=== PATIENT | female | born 1940 | race Caucasian/White ===

== ENCOUNTER 2017-03-20 09:55 | Inpatient (IN) ==
[2017-03-20] MEDS ORDERED: Ipratropium/Albuterol Neb 3 ML IH ONE (10:09)
[2017-03-20] MEDS ORDERED: Furosemide 40 MG/4 ML VIAL IVP ONE (10:18)
[2017-03-20] MEDS ORDERED: Nitroglycerin 1 INCH/GM PACKET TP ONE (10:18)
--- NOTE | 2017-03-20 10:22 | Emergency Department Note ---
Disposition Clinical Impression: Congestive heart failure Disposition: Admitted As Inpatient Condition: Fair Referrals: Dev Aguilar Jr, MD [Primary Care Provider] - Forms: ED Satisfaction Letter Time of Disposition: 13:10 SOB HPI - General Chief Complaint: ED Shortness of Breath/Dyspnea Stated Complaint: JU Time Seen by Provider: 03/20/17 09:59 Source: patient, EMS Limitations: age Nursing Notes Reviewed: Yes Vital Signs Reviewed: Yes - History of Present Illness I did review the previous record and the patient presents today with shortness of breath which have been ongoing since but was worse this morning when she woke up, began gradually, constant, not worse with exertion and she does have a associated cough that she feels that she is not able to actually expectorate sputum. Does have some rhinorrhea, no sneezing. No fever. Does have chronic blurred vision but nothing new. Does have increased lower extremity edema. Has gained 11 pounds of weight since . She denies any skin rash but does have bruising of the skin which is chronic. No pain or numbness of the extremities. Social history: Stopped smoking in 1986. Does use oxygen just at night. Oxygen saturation prior to arrival was 94%. - Related Data Home Medications Medication Instructions Recorded Confirmed Allopurinol [Zyloprim] 300 mg PO QAM 10/11/14 03/20/17 Cholecalciferol (Vitamin D3) 50,000 unit PO 10/11/14 03/20/17 [Vitamin D3] FLUoxetine HCl [Prozac] 20 mg PO QAM 10/11/14 03/20/17 Furosemide [Lasix] 40 mg PO BID 10/11/14 03/20/17 Magnesium Oxide [Mag-Ox] 400 mg PO TID 10/11/14 03/20/17 SitaGLIPtin [Januvia] 100 mg PO QAM 10/11/14 03/20/17 Fluticasone Propionate Nasal 50 mcg NS DAILY 01/25/15 03/20/17 [Flonase] Acetylcysteine 600 mg PO TIDWM 07/04/16 03/20/17 [W-Yiwjrs-c-Cysteine] Alendronate Sodium 70 mg PO TH 07/04/16 03/20/17 Atorvastatin [Lipitor] 40 mg PO DAILY 07/04/16 03/20/17 Cephalexin [Keflex] 250 mg PO 07/04/16 03/20/17 Cyanocobalamin (B-12) [Vitamin B12] 1,000 mcg IM QMONTH 07/04/16 03/20/17 Loratadine [Allergy Relief] 10 mg PO DAILY 07/04/16 03/20/17 Budesonide/Formoterol 160/4.5 2 puff IH BIDR 03/11/17 03/20/17 [Symbicort 160/4.5] Ferrous Sulfate 325 mg PO DAILY 03/11/17 03/20/17 GuaiFENesin/Dextromethorphan 1 each PO Q6H PRN 03/11/17 03/20/17 [Fenesin Dm Ir Tablet] Ipratropium/Albuterol Neb [Duoneb] 3 ml IH QID 03/11/17 03/20/17 Levothyroxine Sodium [Synthroid] 137 mcg PO QAM 03/11/17 03/20/17 Nitroglycerin [Nitrolingual] 1 spray TL AD PRN 03/11/17 03/20/17 Omeprazole [PriLOSEC] 20 mg PO DAILY 03/11/17 03/20/17 Tramadol HCl [Ultram] 50 mg PO Q6H PRN 03/11/17 03/20/17 ALPRAZolam [Xanax 0.5 MG Tablet] 0.5 mg PO HS PRN 03/20/17 03/20/17 Previous Rx's Medication Instructions Recorded Folic Acid 1 mg PO DAILY #30 tablet 02/27/16 Losartan [Cozaar] 25 mg PO DAILY #90 tablet 04/15/16 Carvedilol [Coreg] 3.125 mg PO BIDWM #180 tablet 07/15/16 Gabapentin [Neurontin] 300 mg PO HS #30 capsule 02/19/17 Ondansetron HCl [Zofran] 4 mg PO Q8H PRN #15 tablet 02/19/17 Allergies Allergy/AdvReac Type Severity Reaction Status Date / Time bee venom protein (honey bee) Allergy See Verified 03/20/17 12:49 Comments Iodinated Contrast- Oral and Allergy Hives Verified 03/20/17 12:49 IV Dye [Iodinated Contrast Media - IV Dye] Nickel Allergy Rash Verified 03/20/17 12:49 nitrofurantoin Allergy Difficulty Verified 03/20/17 12:49 [From Macrobid] Breathing Warfarin Allergy unknown Verified 03/20/17 12:49 aspirin AdvReac unknown Verified 03/20/17 12:49 Review of Systems: As Per HPI Past Medical History - Past Medical History Medical history: Reports: arthritis, cancer, CHF, COPD, coronary artery disease , GERD, hyperlipidemia, hypertension, myocardial infarction, osteoporosis, renal disease, thyroid disease Surgical history: Reports: coronary bypass (CABG), pacemaker/AICD Psychiatric history: Reports: anxiety, depression COIL REPAIR TECHNICIAN 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 EYES: PERRL, no scleral icterus. NOSE: The nose is normal in appearance without rhinorrhea RESP: Normal chest excursion with respiration; breath sounds wit bilateral bi- basilar crackles as well as some increased duration of expiratory sounds, no specific wheezing CARD: Regular rhythm, without murmurs, rub or gallop ABD: Non-distended; non-tender, soft,without rigidity, rebound or guarding SKIN: Normal for age and race; warm and dry; no apparent lesions EXTREMITIES: Pulses are 2 plus and equal times 4 extremities, + peripheral edema , no calf muscle pain. - General Limitations: age General appearance: alert, in no apparent distress Course Vital Signs Temperature 97.8 F 03/20/17 09:56 Pulse Rate 68 03/20/17 09:56 Respiratory Rate 18 03/20/17 09:56 Blood Pressure 137/73 03/20/17 09:56 O2 Sat by Pulse Oximetry 96 03/20/17 09:56 Temperature 97.8 F 03/20/17 09:56 Pulse Rate 66 03/20/17 10:33 Respiratory Rate 18 03/20/17 10:33 Blood Pressure 126/57 03/20/17 10:33 O2 Sat by Pulse Oximetry 98 03/20/17 10:33 Oxygen Delivery Oxygen Delivery Room Air Shortness of Breath/Dyspnea - MDM Narrative Medical decision making narrative: Her oxygen saturation on arrival here was 90% and so she is placed on 2 L oxygen nasal cannula. Echocardiogram last year showed an ejection fraction of 40%. She clinically has findings most suggestive of congestive heart failure and tests are ordered including BNP level, EKG, chest x-ray as well as a DuoNeb as well as Lasix 80 mg IV and 1 inch of nitro paste is placed. The patient will be admitted for further management and continued evaluation. 1022 I did review the patient's EKG showing normal sinus rhythm with a rate of 65 without acute ischemic change. Laboratory results are pending. 1107 I did review the patient's test results. The electrolytes were hemolyzed twice and need to be redrawn. We did speak with Dr. Patel the hospitalist who accepts the patient for admission for further evaluation and management of congestive heart failure. - Lab Data Result diagrams: 03/20/17 10:50 Lab Results 03/20/17 03/20/17 03/20/17 Range/Units 10:50 10:50 10:50 WBC 5.8 (4.3-11.1) K/mcL RBC 2.39 L (3.82-4.97) M/mcL Hgb 8.7 L (11.5-15.4) g/dL Hct 27.0 L (35.3-44.9) % MCV 113.0 H (83.0-100.0) fL MCH 36.4 H (28.0-33.3) pg MCHC 32.2 (31.6-35.5) g/dL RDW 19.1 H (11.5-14.5) % Plt Count 229 (140-400) K/mcL MPV 11.4 (9.4-12.4) fL Immature Gran % Test Not Performed Seg Neutrophils % 48.0 % Band Neutrophils % 14.0 H (0-4) % Lymphocytes % 24.0 % Monocytes % 8.0 % Eosinophils % 6.0 % Basophils % Test Not Performed Neutrophils # 3.6 (1.6-8.9) K/mcL Lymphocytes # 1.4 (0.6-4.6) K/mcL Monocytes # 0.5 (0.0-1.3) K/mcL Eosinophils # 0.4 (0.0-0.6) K/mcL Basophils # Test Not Performed Platelet Estimate Normal (Normal) Hypochromasia Present A (Not Present) Poikilocytosis 1+ A (Not Present) Macrocytosis Present A (Not Present) Acanthocytes (Spur) 1+ A (Not Present) Troponin I < 0.03 (< 0.04) ng/mL B-Natriuretic Peptide 204 H (Less than 100) pg/mL Specimen Rejected 03/20/17 Range/Units 10:50 WBC (4.3-11.1) K/mcL RBC (3.82-4.97) M/mcL Hgb (11.5-15.4) g/dL Hct (35.3-44.9) % MCV (83.0-100.0) fL MCH (28.0-33.3) pg MCHC (31.6-35.5) g/dL RDW (11.5-14.5) % Plt Count (140-400) K/mcL MPV (9.4-12.4) fL Immature Gran % Seg Neutrophils % % Band Neutrophils % (0-4) % Lymphocytes % % Monocytes % % Eosinophils % % Basophils % Neutrophils # (1.6-8.9) K/mcL Lymphocytes # (0.6-4.6) K/mcL Monocytes # (0.0-1.3) K/mcL Eosinophils # (0.0-0.6) K/mcL Basophils # Platelet Estimate (Normal) Hypochromasia (Not Present) Poikilocytosis (Not Present) Macrocytosis (Not Present) Acanthocytes (Spur) (Not Present) Troponin I (< 0.04) ng/mL B-Natriuretic Peptide (Less than 100) pg/mL Specimen Rejected Hemolyzed
[2017-03-20 11:08] LABS: Hemoglobin 8.7 g/dL (11.5-15.4); Lymphocytes # 1.4 K/mcL (0.6-4.6); Mean Corpuscular HGB Conc 32.2 g/dL (31.6-35.5); Mean Corpuscular Hemoglobin 36.4 pg (28.0-33.3); Mean Platelet Volume 11.4 fL (9.4-12.4); Platelet Count 229 K/mcL (140-400); Red Blood Count 2.39 M/mcL (3.82-4.97); Red Cell Distribution Width 19.1 % (11.5-14.5)
[2017-03-20 11:51] LABS: Eosinophils # 0.4 K/mcL (0.0-0.6); Monocytes # 0.5 K/mcL (0.0-1.3); Neutrophils # 3.6 K/mcL (1.6-8.9)
[2017-03-20 11:52] LABS: Acanthocytes 1+ (Not Present); Hypochromasia Present (Not Present); Macrocytosis Present (Not Present); Platelet Estimate Normal (Normal)
[2017-03-20 11:53] LABS: Poikilocytosis 1+ (Not Present)
[2017-03-20] MEDS ORDERED: Naloxone 0.4 MG/ML INJ IVP PRN (14:12)
[2017-03-20] MEDS ORDERED: Ondansetron 4 MG/2 ML VIAL IVP PRN (14:12)
[2017-03-20 14:13] LABS: Calcium 8.7 mg/dL (8.6-10.3); Potassium 4.1 mEq/L (3.5-5.1)
[2017-03-20] MEDS ORDERED: ALPRAZolam 0.5 MG TABLET PO PRN (14:21)
[2017-03-20] MEDS ORDERED: Nitroglycerin Spray 4.9 GM BOTTLE TL PRN (14:21)
[2017-03-20] MEDS ORDERED: NON-FORMULARY MEDICATION 1 EACH EACH (Alendronate Sodium [Alendronate Sodium] 70 MG) PO SCH (14:30)
[2017-03-20] MEDS ORDERED: D5% in Water 1,000 ML IVC PRN (14:34)
[2017-03-20] MEDS ORDERED: *HR* Dextrose 50 % in Water (Syg) 50 ML SYRINGE IVP PRN (14:34)
[2017-03-20] MEDS ORDERED: Dextrose Gel 15 GM/37.5 ML TUBE PO PRN ×2 (14:34)
[2017-03-20] MEDS ORDERED: Azithromycin 500 MG in D5% in Water 250 ML IVPB SCH (15:00)
[2017-03-20] MEDS: *HR* Heparin 5,000 UNIT/ML VIAL SQ SCH (15:03)
[2017-03-20] MEDS: Cholecalciferol (D-3) 1,000 UNIT TABLET PO SCH (15:04)
[2017-03-20] MEDS: Magnesium Oxide 400 MG TABLET PO SCH ×2 (15:04→20:37)
--- NOTE | 2017-03-20 15:05 | Internal Med History&Physical ---
Date of Encounter: 03/20/17 Time of Encounter: 13:15 Assessment and Plan (1) Acute exacerbation of CHF (congestive heart failure) Current visit: Yes Status: Acute Acute exacerbation of CHF. Pt. reports low until awakening since [employer], increase in abdominal girth, bilateral pedal edema, and increasing shortness of breath. She states she takes 40 mg by mouth Lasix BID. Hold by mouth Lasix and administer 40 mg IVP Lasix twice a day. Monitor input and output and daily weight. Fluid restriction 1.5 L. Continuous cardiac telemetry. Supplemental O2 with titration and SPO2 monitoring. Echocardiogram ordered. Pt. and f/u labs to be monitored. Pt. discussed w/Dr. Patel who is in agreement w/plan of care. Pt. is high risk for respiratory and/or cardiac distress based on current sx, current bronchitis, SOB/dyspnea, hx, and risk factors. Inpatient. Qualifiers: Congestive heart failure type: diastolic Qualified Code(s): I50.33 - Acute on chronic diastolic (congestive) heart failure (2) Acute bronchitis Current visit: Yes Status: Acute Acute bronchitis r/t COPD and complicated by current CHF exacerbation. IVPB lysin 500 mg daily for infection coverage. Tessalon 100 mg 3 times a day for cough. Supplemental O2 with titration and SPO2 monitoring. Respiratory infection panel and sputum culture ordered. Qualifiers: Bronchitis organism: unspecified organism Qualified Code(s): J20.9 - Acute bronchitis, unspecified (3) Leukemia Current visit: Yes Status: Chronic Hx of chronic leukemia. Pt. reports original cancer was non-Hodgkin's lymphoma. Patient states she sees Dr. Dillon and was due to have treatment last Friday but did not keep appointment due to being sick. Dr. Dillon notified of patient's admission. Qualifiers: Leukemia type: unspecified Leukemia Active/Remission status: without remission Qualified Code(s): C95.90 - Leukemia, unspecified not having achieved remission (4) COPD (chronic obstructive pulmonary disease) Current visit: Yes Status: Chronic Hx of chronic COPD. Stable. Supplemental O2 w/titration and SpO2 monitoring. DuoNebs QID. Qualifiers: COPD type: emphysema Emphysema type: unspecified Qualified Code(s): J43.9 - Emphysema, unspecified (5) CAD (coronary artery disease) Current visit: Yes Status: Chronic Hx of chronic CAD w.AK x3 and CABG x3. Continue Coreg, Cozaar, Lipitor, and Nitrostat when necessary. Continuous cardiac telemetry. Echocardiogram ordered. Qualifiers: Coronary Disease-Associated Artery/Lesion type: [place] artery [place] vs. transplanted heart: [place] heart Associated angina: angina presence unspecified Qualified Code(s): I25.10 - Atherosclerotic heart disease of [place] coronary artery without angina pectoris (6) GERD (gastroesophageal reflux disease) Current visit: Yes Status: Chronic Hx of chronic GERD. IVP Zofran 4 mg Q8 for N/V. Continue patient's Prilosec. Qualifiers: Esophagitis presence: esophagitis presence not specified Qualified Code(s) : K21.9 - Gastro-esophageal reflux disease without esophagitis (7) HLD (hyperlipidemia) Current visit: Yes Status: Chronic Hx of chronic HLD. Lipid panel in a.m. labs. Continue patient's Lipitor. Qualifiers: Hyperlipidemia type: pure hypercholesterolemia Qualified Code(s): E78.00 - Pure hypercholesterolemia, unspecified; E78.0 - Pure hypercholesterolemia (8) HTN (hypertension) Current visit: Yes Status: Chronic Hx of chronic HTN. Monitor pt. and VS. Continue patient's Coreg and Cozaar. Qualifiers: Hypertension type: essential hypertension Qualified Code(s): I10 - Essential (primary) hypertension (9) Thyroid disease Current visit: Yes Status: Chronic Hx of chronic thyroid disease. Continue pts. Synthroid. (10) CKD (chronic kidney disease) stage 3, GFR 30-59 ml/min Current visit: Yes Status: Chronic Hx of CKD. Currently stage 3 w/GFR of 46. Will use IV fluids judiciously if warranted given her current exacerbation of CHF and renal dysfunction. Avoid nephrotoxins. Monitor I&O and daily weight. (11) Anemia Current visit: Yes Status: Chronic Hx of chronic anemia. Current Hgb 8.7 and Hct 27.0 which is below pts. baseline. Pt. denies unusual bleeding. Fecal hemoccult ordered. Monitor H/H in a.m. labs. Continue patient's ferrous sulfate. 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 Monitor pt. for signs of bleeding. Internal Medicine - H&P: HPI Chief complaint: SOB/Dyspnea Admitted From: Emergency Dept Plans for Post Hospital Care: Home History of present illness: Ms. Paredes is a 77 year old female with medical history arthritis, anemia, CHF, COPD, CAD, GERD, HLD, HTN, previous myocardial infarction 3, osteoporosis, COPD , thyroid disease presents from the ED with chief complaint shortness of breath and dyspnea since which became worse this morning. Pt. reports bilateral pedal edema, increase in abdominal girth, and 11 pound weight gain since [place]. Reports cough, SOB, dyspnea, orthopnea, and unsteadiness on her feet but denies recent illness, fever, chills, nausea, vomiting, changes in vision, headache, chest pain, palpitations, generalized weakness or fatigue, unusual bleeding, dizziness, lightheadedness, pre-syncope, or syncope. Past Med Surg Social Fam HX - Past Medical History Source: patient, old records reviewed Medical history: arthritis, cancer (Leukemia), CHF, COPD, coronary artery disease, GERD, hyperlipidemia, hypertension, myocardial infarction, osteoporosis , renal disease, thyroid disease Psychiatric history: anxiety, depression - Past Surgical History Surgical History: coronary bypass (CABG) (x3), pacemaker/AICD - Social History Smoking Status: Former smoker Packs per day: 1 PPD - Reports quitting in 1986 Smokeless Tobacco Status: No Alcohol use: none Drug use: none Current living situation: Assisted Living Activity Level: Independent ambulation, Uses cane/walker Recent Out of Country Travel Within the Last 8 Weeks: No Exposure or Possible Exposure to Illness During Travel: No - Family History Mother Race: Family Member Ethnicity: Non- Living Status: Age at : 80 Cause of : COPD Hx Family Respiratory Disorders: Yes (emphysema) Father Race: Family Member Ethnicity: Non- Living Status: Age at : 62 Cause of : Stroke Hx Family Cardiac Disorders: Yes (Stroke, HTN) Brother Race: Family Member Ethnicity: Non- Living Status: Age at : 70 Cause of : Renal failure Hx Family Genitourinary Disorders: Yes (CKD) Hx Family Endocrine Disorder: Yes (DM) Internal Medicine - H&P: Meds Allopurinol [Zyloprim] 300 mg PO QAM 10/11/14 [History] Cholecalciferol (Vitamin D3) [Vitamin D3] 50,000 unit PO TH 10/11/14 [History] FLUoxetine HCl [Prozac] 20 mg PO QAM 10/11/14 [History] Furosemide [Lasix] 40 mg PO BID 10/11/14 [History] Magnesium Oxide [Mag-Ox] 400 mg PO TID 10/11/14 [History] SitaGLIPtin [Januvia] 100 mg PO QAM 10/11/14 [History] Fluticasone Propionate Nasal [Flonase] 50 mcg NS DAILY 01/25/15 [History] Folic Acid 1 mg PO DAILY #30 tablet 02/27/16 [Rx] Losartan [Cozaar] 25 mg PO DAILY #90 tablet 04/15/16 [Rx] Acetylcysteine [G-Srxcau-k-Cysteine] 600 mg PO TIDWM 07/04/16 [History] Alendronate Sodium 70 mg PO TH 07/04/16 [History] Atorvastatin [Lipitor] 40 mg PO DAILY 07/04/16 [History] Cephalexin [Keflex] 250 mg PO HS 07/04/16 [History] Cyanocobalamin (B-12) [Vitamin B12] 1,000 mcg IM QMONTH 07/04/16 [History] Loratadine [Allergy Relief] 10 mg PO DAILY 07/04/16 [History] Carvedilol [Coreg] 3.125 mg PO BIDWM #180 tablet 07/15/16 [Rx] Gabapentin [Neurontin] 300 mg PO HS #30 capsule 02/19/17 [Rx] Ondansetron HCl [Zofran] 4 mg PO Q8H PRN #15 tablet 02/19/17 [Rx] Budesonide/Formoterol 160/4.5 [Symbicort 160/4.5] 2 puff IH BIDR 03/11/17 [ History] Ferrous Sulfate 325 mg PO DAILY 03/11/17 [History] GuaiFENesin/Dextromethorphan [Fenesin Dm Ir Tablet] 1 each PO Q6H PRN 03/11/17 [ History] Ipratropium/Albuterol Neb [Duoneb] 3 ml IH QID 03/11/17 [History] Levothyroxine Sodium [Synthroid] 137 mcg PO QAM 03/11/17 [History] Nitroglycerin [Nitrolingual] 1 spray TL AD PRN 03/11/17 [History] Omeprazole [PriLOSEC] 20 mg PO DAILY 03/11/17 [History] Tramadol HCl [Ultram] 50 mg PO Q6H PRN 03/11/17 [History] ALPRAZolam [Xanax 0.5 MG Tablet] 0.5 mg PO HS PRN 03/20/17 [History] 3 Allergy/AdvReac Type Severity Reaction Status Date / Time bee venom protein (honey bee) Allergy See Verified 03/20/17 12:49 Comments Iodinated Contrast- Oral and Allergy Hives Verified 03/20/17 12:49 IV Dye [Iodinated Contrast Media - IV Dye] Nickel Allergy Rash Verified 03/20/17 12:49 nitrofurantoin Allergy Difficulty Verified 03/20/17 12:49 [From Macrobid] Breathing Warfarin Allergy unknown Verified 03/20/17 12:49 aspirin AdvReac unknown Verified 03/20/17 12:49 All Systems PM: A 10-system review of systems was performed and is negative for pertinent findings except as documented above in the HPI. - Constitutional Constitutional: as per HPI, no chills, no fever(s), no night sweats - EENT Eyes: no change in vision, no discharge, no pain, no photophobia Ears: no ear discharge, no ear pain, no tinnitus Nose, mouth and throat: no dysphagia, no nasal discharge, no neck pain, no sore throat - Breasts Breasts: as per HPI - Cardiovascular Cardiovascular ROS IM: as per HPI, dyspnea, dyspnea on exertion, edema ( Bilateral pedal edema), orthopnea, no chest pain, no diaphoresis, no lightheadedness, no palpitations, no syncope - Respiratory Respiratory: as per HPI, cough, dyspnea, dyspnea on exertion, wheezing, change in phlegm color, no excessive phlegm production - Gastrointestinal Gastrointestinal: no abdominal pain, no diarrhea, no hematemesis, no hematochezia, no melena, no nausea, no vomiting - Genitourinary Genitourinary: no change in urinary stream, no dysuria, no flank pain, no hematuria Menstruation: as per HPI - Musculoskeletal Musculoskeletal ROS IM: no numbness, no tingling - Integumentary Integumentary IM: no rash, no unusual bruising - Neurological Neurological ROS: no confusion, no convulsions, no focal weakness, no numbness, no tingling, no tremor(s) - Psychiatric Psychiatric: as per HPI, anxiety, depression - Endocrine Endocrine IM: as per HPI - Hematologic/Lymphatic Hematologic/Lymphatic: no easy bruising - Allergic/Immunologic Allergic/Immunologic: as per HPI - Constitutional Vitals: Temp Pulse Resp BP Pulse Ox 97.8 F 66 18 126/57 98 03/20/17 09:56 03/20/17 10:33 03/20/17 10:33 03/20/17 10:33 03/20/17 10:33 General appearance: Present: cooperative, mild distress (Respiratory), A&O X 3, pleasant, obese, answers questions appropriately - Head Head exam: Present: atraumatic, normocephalic - Eye Eye exam: Present: PERRL, conjuntiva pink, sclera anicteric Pupils: Present: PERRL - ENT ENT exam: Present: normal exam - Neck Neck exam general surgery: Present: normal inspection, supple, trachea midline. Absent: lymphadenopathy - Respiratory Respiratory exam: Present: accessory muscle use, wheezes - Cardiovascular Cardiovascular exam: Present: RRR, +S1, +S2. Absent: diastolic murmur, gallop, rubs, systolic murmur - GI/Abdominal GI/Abdominal exam: Present: normal bowel sounds, soft, no peritoneal signs. Absent: distended, tenderness - Rectal Rectal exam: Present: deferred - Additional comments: exam deferred. - Extremities Exam Extremities exam: Present: pedal edema (Bialteral ), warm, radial pulses palpable and symmetrical. Absent: calf tenderness, cyanotic - Back Exam Back exam: Present: normal inspection - Neurological Exam Neurological exam: Present: CN II-XII intact, oriented X3, no focal deficits. Absent: pronater drift, facial droop, speech deficit - Psychiatric Psychiatric exam: Present: normal affect, normal mood - Skin Skin exam: Present: dry, intact Internal Med - H&P Results - Labs CBC & Chem 7: 03/20/17 10:50 03/20/17 13:24 - EKG Data EKG shows normal: sinus rhythm - EKG Data Prior EKG available for review: yes Interpretation IM: suggestive of ischemia EKG comments: 03/20/17 15:11 EKG dated 03/11/17 shows atrial fibrillation with possible anterior myocardial infarction, probably old. EKG dated 03/20/17 shows sinus rhythm with first-degree AV block and possible anterior myocardial infarction of indeterminate age. - Diagnostic Studies Chest x-ray Additional comments: Impressions Chest X-Ray 03/20/17 10:10 IMPRESSION: Prominent interstitial changes diffusely suggestive of pulmonary edema, minimally improved from the prior exam. D/ / Salbador Douglas MD / Salbador Douglas MD Interpreting Provider: Salbador Douglas MD
[2017-03-20] MEDS: Ipratropium/Albuterol Neb 3 ML IH SCH ×2 (16:59→23:31)
[2017-03-20] MEDS: Insulin LISPRO 300 UNITS/3 ML VIAL SQ SCH ×2 (17:10→20:37)
[2017-03-20] MEDS: Furosemide 40 MG/4 ML VIAL IVP SCH (17:19)
[2017-03-20] MEDS: *HR* Acetylcysteine 20% 600 MG/3 ML ORAL SYRINGE PO SCH (17:19)
[2017-03-20 17:56] LABS: Adenovirus Not Detected (Not Detect); Bordetella Pertussis Not Detected (Not Detect); Chlamydophila pneumoniae Not Detected (Not Detect); Coronavirus 229E Not Detected (Not Detect); Coronavirus HKU1 Not Detected (Not Detect); Coronavirus NL63 ***DETECTED*** (Not Detect); Coronavirus OC43 Not Detected (Not Detect); Human Metapneumovirus ***DETECTED*** (Not Detect); Human Rhinovirus/Enterovirus Not Detected (Not Detect); Influenza A Subtype 2009 H1 Not Detected (Not Detect); Influenza A Untypeable Not Detected (Not Detect); Influenza B Not Detected (Not Detect); Mycoplasma pneumoniae Not Detected (Not Detect); Parainfluenza Virus 1 Not Detected (Not Detect); Parainfluenza Virus 2 Not Detected (Not Detect); Parainfluenza Virus 3 Not Detected (Not Detect); Parainfluenza Virus 4 Not Detected (Not Detect); Respiratory Syncytial Virus Not Detected (Not Detect)
[2017-03-20] MEDS ORDERED: Acetaminophen 325 MG TABLET PO PRN (20:41)
[2017-03-20] MEDS: Budesonide/Formoterol 160/4.5 MDI IH SCH (23:31)
[2017-03-21] MEDS: *HR* Heparin 5,000 UNIT/ML VIAL SQ SCH ×3 (00:21→16:51)
[2017-03-21] MEDS: Benzonatate 100 MG CAPSULE PO PRN (00:21)
[2017-03-21] MEDS: Ipratropium/Albuterol Neb 3 ML IH SCH ×4 (04:27→22:45)
[2017-03-21 07:35] LABS: Alanine Aminotransferase 6 Units/L (7-52); Albumin 3.1 g/dL (3.5-5.7); Albumin/Globulin Ratio 0.9 (1.1-2.2); Alkaline Phosphatase 75 Units/L (34-104); Aspartate Amino Transferase 11 Units/L (13-39); BUN/Creatinine Ratio 24 (6-26); Bilirubin,Total 1.1 mg/dL (0.3-1.0); Blood Urea Nitrogen 24 mg/dL (8-23); Calcium 8.5 mg/dL (8.6-10.3); Carbon Dioxide 32 mEq/L (23-29); Chloride 98 mEq/L (98-107); Glucose 172 mg/dL (70-105); Magnesium 1.6 mg/dL (1.6-2.6); Osmolality,Calculated 290 (280-300); Potassium 3.6 mEq/L (3.5-5.1); Sodium 136 mEq/L (136-145); Total Protein 6.4 g/dL (6.4-8.9); eGFR For African Americans > 60 (> 60); eGFR For Non-African Americans 53 (> 60)
[2017-03-21 07:36] LABS: Chol/HDL Ratio 2.1 (0-4.9); Cholesterol 77 mg/dL (< 200); Globulin 3.3 g/dL (2.4-3.5); HDL Cholesterol 36 mg/dL (40-59); LDL Cholesterol,Calculated 30 mg/dL (0-99); Triglycerides 57 mg/dL (< 150)
--- NOTE | 2017-03-21 07:38 | Electrocardiograph Report ---
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
[2017-03-21 07:40] LABS: Hematocrit 26.8 % (35.3-44.9); Hemoglobin 8.8 g/dL (11.5-15.4); Mean Corpuscular HGB Conc 32.8 g/dL (31.6-35.5); Mean Corpuscular Hemoglobin 36.5 pg (28.0-33.3); Mean Corpuscular Volume 111.2 fL (83.0-100.0); Mean Platelet Volume 11.5 fL (9.4-12.4); Platelet Count 198 K/mcL (140-400); Red Blood Count 2.41 M/mcL (3.82-4.97); Red Cell Distribution Width 18.9 % (11.5-14.5)
[2017-03-21] MEDS: *HR* Acetylcysteine 20% 600 MG/3 ML ORAL SYRINGE PO SCH ×3 (07:47→16:52)
[2017-03-21] MEDS: Furosemide 40 MG/4 ML VIAL IVP SCH ×2 (07:47→16:50)
[2017-03-21] MEDS: FLUoxetine 20 MG CAPSULE PO SCH (07:48)
[2017-03-21] MEDS: Loratadine 10 MG TABLET PO SCH (07:48)
[2017-03-21] MEDS: Folic Acid 1 MG TABLET PO SCH (07:49)
[2017-03-21] MEDS: Magnesium Oxide 400 MG TABLET PO SCH ×3 (07:49→21:53)
[2017-03-21] MEDS: Cholecalciferol (D-3) 1,000 UNIT TABLET PO SCH (07:49)
[2017-03-21] MEDS: Fluticasone Propionate Nasal 50 MCG/SPRAY BOTTLE NS SCH (07:57)
[2017-03-21] MEDS: Insulin LISPRO 300 UNITS/3 ML VIAL SQ SCH ×4 (07:58→23:50)
[2017-03-21 08:09] LABS: Hemoglobin A1C 6.2 %
--- NOTE | 2017-03-21 08:45 | Internal Med Progress Note ---
Date of Encounter: 03/21/17 Time of Encounter: 08:45 - Assessment and plan (1) Acute exacerbation of congestive heart failure Current Visit: Yes Status: Acute Assessment and plan: This is an acute exacerbation of combined systolic and diastolic heart failure. Continue with diuresis with 40 mg IV of Lasix twice a day. Continue with nebulizers. He is on chronic 2 L of O2 via nasal cannula. Monitor I&Os. Continue fluid restrictions. Follow up on echo results. 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 Seems to be clinically stable. (3) Anemia Current Visit: Yes Status: Chronic Assessment and plan: Josefina anemia of chronic disease. Hemoglobin is stable for now. No need for transfusions. 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 Continue Accu-Cheks. (5) Acute bronchitis Current Visit: Yes Status: Acute Assessment and plan: Positive coronavirus as well as human Metapneumovir virus. Started on zithro. I will stop that. continue symptomatic treatment. Qualifiers: Bronchitis organism: unspecified organism Qualified Code(s): J20.9 - Acute bronchitis, unspecified (6) COPD (chronic obstructive pulmonary disease) Current Visit: Yes Status: Chronic Assessment and plan: Continue inhalers. Continue nebulizer treatments. Qualifiers: COPD type: emphysema Emphysema type: unspecified Qualified Code(s): J43.9 - Emphysema, unspecified (7) CAD (coronary artery disease) Current Visit: Yes Status: Chronic Assessment and plan: Hx of chronic CAD w.[place] x3 and CABG x3. Continue Coreg, Cozaar, Lipitor, and Nitrostat when necessary. Continuous cardiac telemetry Qualifiers: Coronary Disease-Associated Artery/Lesion type: [place] artery [place] vs. transplanted heart: [place] heart Associated angina: angina presence unspecified Qualified Code(s): I25.10 - Atherosclerotic heart disease of [place] coronary artery without angina pectoris (8) GERD (gastroesophageal reflux disease) Current Visit: Yes Status: Chronic Assessment and plan: Continue with rales at Qualifiers: Esophagitis presence: esophagitis presence not specified Qualified Code(s) : K21.9 - Gastro-esophageal reflux disease without esophagitis (9) HLD (hyperlipidemia) Current Visit: Yes Status: Chronic Assessment and plan: Continue statin Qualifiers: Hyperlipidemia type: pure hypercholesterolemia Qualified Code(s): E78.00 - Pure hypercholesterolemia, unspecified; E78.0 - Pure hypercholesterolemia (10) HTN (hypertension) Current Visit: Yes Status: Chronic Assessment and plan: Blood pressure stable on Coreg and losartan. Qualifiers: Hypertension type: essential hypertension Qualified Code(s): I10 - Essential (primary) hypertension (11) CKD (chronic kidney disease) stage 3, GFR 30-59 ml/min Current Visit: Yes Status: Chronic Assessment and plan: She be about baseline. We will continue to monitor. Avoid unnecessary nephrotoxins. (12) DVT prophylaxis Current Visit: Yes Status: Acute Assessment and plan: Heparin subcutaneous - Subjective Interval history: Patient was seen and examined. Admitted yesterday with exacerbation of CHF and acute bronchitis. She feels better this morning she says. Seems to be doing better this morning. Remains on 2 L of oxygen which she is on chronically.. Has been diuresing since admission. Denies chest pain. Has been afebrile. - Constitutional Vitals: Temp Pulse Resp BP Pulse Ox 98.3 F 80 18 121/66 94 03/21/17 07:10 03/21/17 07:10 03/21/17 07:10 03/21/17 07:10 03/21/17 08:33 General appearance: Present: cooperative, mild distress (Respiratory), A&O X 3, pleasant, obese, answers questions appropriately Exam: GEN: NAD CVS: RRR. S1, S2, No m/r/g RESP: Diminished at the bases with bibasilar crackles ABD: Soft, NT, ND, +BS EXT: Plus edema. 2+ DP. No rashes NEURO: Nonfocal Internal Medicine: Result - Labs CBC & Chem 7: 03/21/17 06:27 03/21/17 06:27 Labs: Short CBC 03/21/17 Range/Units 06:27 WBC 12.1 H D (4.3-11.1) K/mcL Hgb 8.8 L (11.5-15.4) g/dL Hct 26.8 L (35.3-44.9) % Plt Count 198 (140-400) K/mcL BMP 03/21/17 06:27 Sodium 136 Potassium 3.6 Chloride 98 Carbon Dioxide 32 H BUN 24 H Creatinine 1.01 Glucose 172 H Calcium 8.5 L Liver Function 03/21/17 Range/Units 06:27 Total Bilirubin 1.1 H (0.3-1.0) mg/dL AST 11 L (13-39) Units/L ALT 6 L (7-52) Units/L Alkaline Phosphatase 75 (34-104) Units/L Albumin 3.1 L (3.5-5.7) g/dL Consult Discharge Plan - Plan Referrals: Dev Aguilar Jr, MD [Primary Care Provider] -
[2017-03-21 08:57] LABS: Anisocytosis 1+ (Not Present); Eosinophils # 0.1 K/mcL (0.0-0.6); Hypochromasia Present (Not Present); Lymphocytes # 1.8 K/mcL (0.6-4.6); Monocytes # 0.7 K/mcL (0.0-1.3); Neutrophils # 9.4 K/mcL (1.6-8.9)
[2017-03-21 08:58] LABS: Macrocytosis Present (Not Present); Platelet Estimate Normal (Normal)
[2017-03-21] MEDS: Budesonide/Formoterol 160/4.5 MDI IH SCH ×2 (11:06→22:45)
[2017-03-21] MEDS ORDERED: Azithromycin 250 MG TABLET PO SCH (15:00)
[2017-03-22] MEDS: *HR* Heparin 5,000 UNIT/ML VIAL SQ SCH ×4 (00:22→23:24)
[2017-03-22] MEDS: Ipratropium/Albuterol Neb 3 ML IH SCH ×4 (04:01→22:31)
[2017-03-22 05:12] LABS: Basophils % 0.3 %; Eosinophils # 0.1 K/mcL (0.0-0.6); Hematocrit 24.3 % (35.3-44.9); Hemoglobin 7.8 g/dL (11.5-15.4); Immature Granulocytes % 0.6 % (0-4); Lymphocytes # 1.7 K/mcL (0.6-4.6); Lymphocytes % 17.2 %; Mean Corpuscular HGB Conc 32.1 g/dL (31.6-35.5); Mean Corpuscular Hemoglobin 35.5 pg (28.0-33.3); Mean Corpuscular Volume 110.5 fL (83.0-100.0); Mean Platelet Volume 11.3 fL (9.4-12.4); Monocytes # 0.8 K/mcL (0.0-1.3); Monocytes % 8.4 %; Neutrophils # 7.1 K/mcL (1.6-8.9); Platelet Count 194 K/mcL (140-400); Red Cell Distribution Width 18.6 % (11.5-14.5); Segmented Neutrophils % 72.5 %
[2017-03-22 05:26] LABS: Alanine Aminotransferase 5 Units/L (7-52); Albumin 2.8 g/dL (3.5-5.7); Albumin/Globulin Ratio 0.9 (1.1-2.2); Alkaline Phosphatase 65 Units/L (34-104); Aspartate Amino Transferase 9 Units/L (13-39); BUN/Creatinine Ratio 30 (6-26); Bilirubin,Total 1.2 mg/dL (0.3-1.0); Blood Urea Nitrogen 28 mg/dL (8-23); Calcium 8.6 mg/dL (8.6-10.3); Carbon Dioxide 30 mEq/L (23-29); Chloride 98 mEq/L (98-107); Globulin 3.2 g/dL (2.4-3.5); Glucose 165 mg/dL (70-105); Osmolality,Calculated 287 (280-300); Potassium 3.6 mEq/L (3.5-5.1); Sodium 134 mEq/L (136-145); eGFR For African Americans > 60 (> 60); eGFR For Non-African Americans 58 (> 60)
[2017-03-22 05:37] LABS: Anisocytosis 1+ (Not Present); Hypochromasia Present (Not Present); Macrocytosis Present (Not Present); Ovalocytes 1+ (Not Present); Platelet Estimate Normal (Normal); Target Cells 1+ (Not Present); Tear Drop Cells 1+ (Not Present)
[2017-03-22 05:38] LABS: Poikilocytosis 1+ (Not Present)
[2017-03-22] MEDS: *HR* Acetylcysteine 20% 600 MG/3 ML ORAL SYRINGE PO SCH ×3 (09:27→17:24)
[2017-03-22] MEDS: FLUoxetine 20 MG CAPSULE PO SCH (09:27)
[2017-03-22] MEDS: Cholecalciferol (D-3) 1,000 UNIT TABLET PO SCH (09:27)
[2017-03-22] MEDS: Loratadine 10 MG TABLET PO SCH (09:27)
[2017-03-22] MEDS: Magnesium Oxide 400 MG TABLET PO SCH ×3 (09:27→22:09)
[2017-03-22] MEDS: Furosemide 40 MG/4 ML VIAL IVP SCH ×2 (09:28→17:24)
[2017-03-22] MEDS: Folic Acid 1 MG TABLET PO SCH (09:28)
[2017-03-22] MEDS: Fluticasone Propionate Nasal 50 MCG/SPRAY BOTTLE NS SCH (09:31)
[2017-03-22] MEDS: Insulin LISPRO 300 UNITS/3 ML VIAL SQ SCH ×4 (09:31→22:09)
[2017-03-22] MEDS: Budesonide/Formoterol 160/4.5 MDI IH SCH ×2 (09:51→22:31)
[2017-03-22 11:53] LABS: Magnesium 1.7 mg/dL (1.6-2.6)
[2017-03-22 12:09] LABS: Thyroid Stimulating Hormone 1.981 mcIU/mL (0.340-5.600)
--- NOTE | 2017-03-22 13:12 | Internal Med Progress Note ---
Date of Encounter: 03/22/17 Time of Encounter: 13:10 - Assessment and plan (1) Acute exacerbation of congestive heart failure Current Visit: Yes Status: Acute Assessment and plan: This is an acute exacerbation of combined systolic and diastolic heart failure. Continue with diuresis with 40 mg IV of Lasix twice a day. Given the low blood pressure hold Coreg and losartan. Continue with nebulizers. She is on chronic 2 L of O2 via nasal cannula. Monitor I&Os. Continue fluid restrictions. Repeat chest x-ray Echo with EF 35-40% with indeterminate diastolic dysfunction. 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 Seems to be clinically stable. (3) Anemia Current Visit: Yes Status: Chronic Assessment and plan: This may be anemia of chronic disease as well as chemotherapy related. However she reports dark stools. We will check stools for fecal occult blood. Hemoglobin did drop to 7.8. Was 8.8 yesterday. On admission was 8.7. MCV is elevated. Check vitamin B12 levels as well as folate levels. No need for transfusions. 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 Continue Accu-Cheks. (5) Acute bronchitis Current Visit: Yes Status: Acute Assessment and plan: Positive coronavirus as well as human Metapneumovir virus. Started on zithro and received 1 day of it. I did stop that. continue symptomatic treatment. Qualifiers: Bronchitis organism: unspecified organism Qualified Code(s): J20.9 - Acute bronchitis, unspecified (6) COPD (chronic obstructive pulmonary disease) Current Visit: Yes Status: Chronic Assessment and plan: Continue inhalers. Continue nebulizer treatments. Qualifiers: COPD type: emphysema Emphysema type: unspecified Qualified Code(s): J43.9 - Emphysema, unspecified (7) CAD (coronary artery disease) Current Visit: Yes Status: Chronic Assessment and plan: Hx of chronic CAD w.[place] x3 and CABG x3. Continue Coreg, Cozaar, Lipitor, and Nitrostat when necessary. Continuous cardiac telemetry Qualifiers: Coronary Disease-Associated Artery/Lesion type: [place] artery [place] vs. transplanted heart: [place] heart Associated angina: angina presence unspecified Qualified Code(s): I25.10 - Atherosclerotic heart disease of [place] coronary artery without angina pectoris (8) GERD (gastroesophageal reflux disease) Current Visit: Yes Status: Chronic Assessment and plan: Continue with rales at Qualifiers: Esophagitis presence: esophagitis presence not specified Qualified Code(s) : K21.9 - Gastro-esophageal reflux disease without esophagitis (9) HLD (hyperlipidemia) Current Visit: Yes Status: Chronic Assessment and plan: Continue statin Qualifiers: Hyperlipidemia type: pure hypercholesterolemia Qualified Code(s): E78.00 - Pure hypercholesterolemia, unspecified; E78.0 - Pure hypercholesterolemia (10) HTN (hypertension) Current Visit: Yes Status: Chronic Assessment and plan: Blood pressure is on the lower side. Hold Coreg and losartan. Qualifiers: Hypertension type: essential hypertension Qualified Code(s): I10 - Essential (primary) hypertension (11) CKD (chronic kidney disease) stage 3, GFR 30-59 ml/min Current Visit: Yes Status: Chronic Assessment and plan: She is at about baseline. We will continue to monitor. Avoid unnecessary nephrotoxins. (12) DVT prophylaxis Current Visit: Yes Status: Acute Assessment and plan: Heparin subcutaneous (13) Goals of care, counseling/discussion Current Visit: Yes Status: Acute Assessment and plan: Consults palliative as the patient has expressed to me that she is tired of being sick. She is not suicidal however. - Subjective Interval history: Patient was seen and examined. Her blood pressure has been on the lower side. The patient reports dark stools. There has been no obvious signs of bleeding. Her hemoglobin is dropping however. She continues to complain of a nagging dry cough. She still me that she is tired of this and wishes that all lesions. She did not tell me that she was suicidal. He simply stated that she started being sick. Admitted with exacerbation of CHF and acute bronchitis. Remains on 2 L of oxygen which she is on chronically. Has been diuresing since admission. Denies chest pain. Has been afebrile. - Constitutional Vitals: Temp Pulse Resp BP Pulse Ox 97.9 F 81 17 99/40 98 03/22/17 11:16 03/22/17 11:16 03/22/17 11:16 03/22/17 11:16 03/22/17 11:16 General appearance: Present: cooperative, mild distress (Respiratory), A&O X 3, pleasant, obese, answers questions appropriately Exam: GEN: NAD CVS: RRR. S1, S2, No m/r/g RESP: Diminished at the bases with bibasilar crackles ABD: Soft, NT, ND, +BS EXT: Plus edema. 2+ DP. No rashes NEURO: Nonfocal Internal Medicine: Result - Labs CBC & Chem 7: 03/22/17 04:43 03/22/17 04:43 Labs: Short CBC 03/22/17 Range/Units 04:43 WBC 9.8 (4.3-11.1) K/mcL Hgb 7.8 L (11.5-15.4) g/dL Hct 24.3 L (35.3-44.9) % Plt Count 194 (140-400) K/mcL Neutrophils # 7.1 (1.6-8.9) K/mcL BMP 03/22/17 04:43 Sodium 134 L Potassium 3.6 Chloride 98 Carbon Dioxide 30 H BUN 28 H Creatinine 0.93 Glucose 165 H Calcium 8.6 Liver Function 03/22/17 Range/Units 04:43 Total Bilirubin 1.2 H (0.3-1.0) mg/dL AST 9 L (13-39) Units/L ALT 5 L (7-52) Units/L Alkaline Phosphatase 65 (34-104) Units/L Albumin 2.8 L (3.5-5.7) g/dL - Impressions Impressions Chest X-Ray 03/22/17 08:43 IMPRESSION: Cardiomegaly with vascular congestion and chronic interstitial lung changes. Left lower lobe atelectasis or infiltrate. D/ / 03/22/2017 09:39:38 Greg Patel MD / Jessica Mora Interpreting Provider: Greg Patel MD Consult Discharge Plan - Plan Referrals: Dev Aguilar Jr, MD [Primary Care Provider] -
[2017-03-22] MEDS ORDERED: Magnesium Oxide 400 MG TABLET PO ONE (13:19)
--- NOTE | 2017-03-22 17:11 | Palliative - Consult Note ---
Date of Encounter: 03/23/17 Time of Encounter: 16:15 - Assessment and Plan (1) Acute bronchitis Current Visit: Yes Status: Acute Assessment and plan: This appears to be viral in nature. Being treated aggressively by the primary care team continue current treatment. Qualifiers: Bronchitis organism: unspecified organism Qualified Code(s): J20.9 - Acute bronchitis, unspecified (2) Acute exacerbation of CHF (congestive heart failure) Current Visit: Yes Status: Acute Assessment and plan: Patient on fluid restriction getting Lasix. echoCardiogram shows ejection fraction of 35-40%. Indeterminate diastolic dysfunction. 10 you current treatment as being mediated by the hospitalist team. Patient states that she has an implantable defibrillator. Asked that it be turned off as she does not want it to start her heart in the event of cardiac arrest. Of note she brought this up spontaneously there was no discussion prior to this about her defibrillator. Assured her that I would put in a consult to cardiology to have them speak to her about having it turned off. I believe given her overall goals of care this is appropriate. Qualifiers: Congestive heart failure type: diastolic Qualified Code(s): I50.33 - Acute on chronic diastolic (congestive) heart failure (3) Goals of care, counseling/discussion Current Visit: Yes Status: Acute Assessment and plan: The patient is DNR CCA, DNI. He is truly sick and tired of being sick and tired however she is not overtly suicidal. She just does not want to continue to get therapy that she feels is really working well for her. This point she feels like overall her body is failing despite all of the aggressive medical care that she has been getting and she says that she is ready to switch over to merely comfort care. She does recognize that she has done quite well overall with regard to her breast cancer her leukemia her [place] Waldenstrom's and her heart disease. At this point she spontaneously asked me to have her defibrillator turned off she explained before I even had a chance to ask that she did not want it to go off and cause her heart to restart when it had already stopped. While I believe the patient does have an element of depression she is already on Prozac she also has difficulty with appetite as well as sleep at night. I strongly therefore recommend switching over to mirtazapine from the Prozac. I will start the mirtazapine this evening, and discuss further with hospitalist tomorrow about stopping the Prozac I do not think she will need to have both. (4) Anemia Current Visit: Yes Status: Chronic Assessment and plan: The patient is seriously considering stopping all further treatments with regards to the anemia. States at this time she does not think she would want to have a transfusion, however she will consider that if it should become recommended to her. 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 Paredes is a 77 year old female Who has been battling appears to be viral illnesses off and on since the end of summer. Point time she states she is very much sick and tired of being sick and tired. sHe would like to explore other options. Patient states that she has been having respiratory illnesses that have been again coming and going for the last several months this dates back to the end of summer or early fall. He bed since but was getting worse after . States the treatments that she is getting do not seem to be helping overall but she does recognize that she has survived much longer than previously her various illnesses. States her overall fear is cramping in her legs at end of life. She would like to have something to make sure that does not happen. Currently lives in an assisted living situation at [facility]. She is able to get around her room okay without very much assistance but she states the assistance that she is getting is inadequate for what she needs and she like to have more. Kamilah is not able to help her as much as she would like as there has been a recent all for her daughter Caty Ramon who is also her medical power of consumer attorney causing a femur fracture for which she is not able to bear weight and will be able to for probably another several months. Ms. Ramon is the medical power of consumer attorney per the patient at [phone]. She has also noted that she has been bloating quite a bit having more trouble breathing of late and also having a chest discomfort which she describes as a very deep bruise not seem to radiate, nothing makes it better or worse since do seem to help to some degree. It is associated with some shortness of breath but does not seem be associated with a particular Dolly increase in shortness of breath. She is currently being treated for an exacerbation of her CHF as well as viral bronchitis as well as chronic leukemia area artery disease hyperlipidemia and anemia. Indicates at this point in time she does not feel the treatments are helping her that much and that she would like to consider stopping the treatments in favor of comfort care. She is currently DO NOT RESUSCITATE comfort care arrest DO NOT INTUBATE she is clearly not suicidal, however she did have questions about sedation. See the assessment and plan. CC: Jessica Carrasquillo Sick and tired of being sick and tired Past Med Surg Social Fam HX - Past Medical History Medical history: arthritis, cancer (Leukemia), CHF, COPD, coronary artery disease, GERD, hyperlipidemia, hypertension, myocardial infarction, osteoporosis , renal disease, thyroid disease Psychiatric history: anxiety, depression - Past Surgical History Surgical History: coronary bypass (CABG) (x3), pacemaker/AICD - Social History Smoking Status: Former smoker Packs per day: 1 PPD - Reports quitting in 1986 Smokeless Tobacco Status: No Alcohol use: none Drug use: none - Family History Father Race: Family Member Ethnicity: Non- Living Status: Age at : 62 Cause of : Stroke Hx Family Cardiac Disorders: Yes (Stroke, HTN) Brother Race: Family Member Ethnicity: Non- Living Status: Age at : 70 Cause of : Renal failure Hx Family Genitourinary Disorders: Yes (CKD) Hx Family Endocrine Disorder: Yes (DM) Mother Race: Family Member Ethnicity: Non- Living Status: Age at : 80 Cause of : COPD Hx Family Cardiac Disorders: Yes Hx Family Respiratory Disorders: Yes (emphysema) Medications and Allergies Allopurinol [Zyloprim] 300 mg PO QAM 10/11/14 [History] Cholecalciferol (Vitamin D3) [Vitamin D3] 50,000 unit PO 10/11/14 [History] FLUoxetine HCl [Prozac] 20 mg PO QAM 10/11/14 [History] Furosemide [Lasix] 40 mg PO BID 10/11/14 [History] Magnesium Oxide [Mag-Ox] 400 mg PO TID 10/11/14 [History] SitaGLIPtin [Januvia] 100 mg PO QAM 10/11/14 [History] Fluticasone Propionate Nasal [Flonase] 50 mcg NS DAILY 01/25/15 [History] Folic Acid 1 mg PO DAILY #30 tablet 02/27/16 [Rx] Losartan [Cozaar] 25 mg PO DAILY #90 tablet 04/15/16 [Rx] Acetylcysteine [R-Kvnonl-c-Cysteine] 600 mg PO TIDWM 07/04/16 [History] Alendronate Sodium 70 mg PO TH 07/04/16 [History] Atorvastatin [Lipitor] 40 mg PO DAILY 07/04/16 [History] Cephalexin [Keflex] 250 mg PO HS 07/04/16 [History] Cyanocobalamin (B-12) [Vitamin B12] 1,000 mcg IM QMONTH 07/04/16 [History] Loratadine [Allergy Relief] 10 mg PO DAILY 07/04/16 [History] Carvedilol [Coreg] 3.125 mg PO BIDWM #180 tablet 07/15/16 [Rx] Gabapentin [Neurontin] 300 mg PO HS #30 capsule 02/19/17 [Rx] Ondansetron HCl [Zofran] 4 mg PO Q8H PRN #15 tablet 02/19/17 [Rx] Budesonide/Formoterol 160/4.5 [Symbicort 160/4.5] 2 puff IH BIDR 03/11/17 [ History] Ferrous Sulfate 325 mg PO DAILY 03/11/17 [History] GuaiFENesin/Dextromethorphan [Fenesin Dm Ir Tablet] 1 each PO Q6H PRN 03/11/17 [ History] Ipratropium/Albuterol Neb [Duoneb] 3 ml IH QID 03/11/17 [History] Levothyroxine Sodium [Synthroid] 137 mcg PO QAM 03/11/17 [History] Nitroglycerin [Nitrolingual] 1 spray TL AD PRN 03/11/17 [History] Omeprazole [PriLOSEC] 20 mg PO DAILY 03/11/17 [History] Tramadol HCl [Ultram] 50 mg PO Q6H PRN 03/11/17 [History] ALPRAZolam [Xanax 0.5 MG Tablet] 0.5 mg PO HS PRN 03/20/17 [History] 3 Allergy/AdvReac Type Severity Reaction Status Date / Time bee venom protein (honey bee) Allergy See Verified 03/20/17 12:49 Comments Iodinated Contrast- Oral and Allergy Hives Verified 03/20/17 12:49 IV Dye [Iodinated Contrast Media - IV Dye] Nickel Allergy Rash Verified 03/20/17 12:49 nitrofurantoin Allergy Difficulty Verified 03/20/17 12:49 [From Macrobid] Breathing Warfarin Allergy unknown Verified 03/20/17 12:49 aspirin AdvReac unknown Verified 03/20/17 12:49 - Constitutional Constitutional ROS PAL: decreased appetite, anorexia, fatigue, no chills - EENT Eyes: no discharge, no loss of vision, no pain Ears: no ear discharge, no ear pain Ears, nose, mouth, throat: no facial pain, no hoarseness, no lip swelling, no mouth pain - Cardiovascular Cardiovascular ROS: chest pain, chest pain at rest, chest pain with activity, dyspnea on exertion, irregular heart rhythm, palpitations - Respiratory Respiratory: cough, dyspnea, dyspnea on exertion, chest congestion - Gastrointestinal Gastrointestinal: no constipation, no diarrhea, no nausea, no vomiting - Genitourinary Palliative ROS female: no urinary hesitancy, no urinary incontinence, no urinary urgency - Musculoskeletal Musculoskeletal ROS IM: no back pain, no myalgias - Integumentary ROS Integumentary: no skin pain, no skin ulcer, no sores - Neurological Neurological ROS: headache(s), no burning sensations, no confusion, no convulsions - Psychiatric Psychiatric general PM: depression (Mostly situational, essentially sick and tired of being sick and tired), no anxiety, no homicidal ideation, no suicidal ideation - Endocrine Additional comments: Thyroid disease Palliative Care-Exam - Constitutional Vitals: Temp Pulse Resp BP Pulse Ox 98.3 F 81 15 105/46 98 03/22/17 15:23 03/22/17 15:23 03/22/17 15:23 03/22/17 15:23 03/22/17 15:23 General appearance: Present: no acute distress - Head Head Exam: Present: atraumatic, normal inspection - Eye Eye exam: Present: normal appearance - ENT ENT exam: Present: mucous membranes moist, normal oropharynx - Neck Neck exam: Present: normal inspection - Respiratory Respiratory exam: Present: decreased breath sounds - Cardiovascular Cardiovascular exam: Present: RRR - GI/Abdominal Exam GI/Abdominal exam: Present: normal bowel sounds, soft. Absent: tenderness - Extremities Exam Extremities exam: Present: pedal edema (Some but mostly in the feet pretibial not bad). Absent: normal inspection, tenderness - Neurological Exam Neurological exam: Present: alert, oriented X3 - Psychiatric Psychiatric exam: Absent: agitated, anxious, depressed, homicidal ideation, suicidal ideation - Skin Skin exam: Present: dry, warm Internal Medicine - CN: Reslt - Labs CBC & Chem 7: 03/23/17 06:38 03/23/17 06:38 Labs: Short CBC 03/22/17 Range/Units 04:43 WBC 9.8 (4.3-11.1) K/mcL Hgb 7.8 L (11.5-15.4) g/dL Hct 24.3 L (35.3-44.9) % Plt Count 194 (140-400) K/mcL Neutrophils # 7.1 (1.6-8.9) K/mcL BMP 03/22/17 04:43 Sodium 134 L Potassium 3.6 Chloride 98 Carbon Dioxide 30 H BUN 28 H Creatinine 0.93 Glucose 165 H Calcium 8.6 Liver Function 03/22/17 Range/Units 04:43 Total Bilirubin 1.2 H (0.3-1.0) mg/dL AST 9 L (13-39) Units/L ALT 5 L (7-52) Units/L Alkaline Phosphatase 65 (34-104) Units/L Albumin 2.8 L (3.5-5.7) g/dL - Impressions Impressions Chest X-Ray 03/22/17 08:43 IMPRESSION: Cardiomegaly with vascular congestion and chronic interstitial lung changes. Left lower lobe atelectasis or infiltrate. D/ / 03/22/2017 09:39:38 Greg Patel MD / Jessica Mora Interpreting Provider: Greg Patel MD Consult Discharge Plan - Plan Referrals: Dev Aguilar Jr, MD [Primary Care Provider] - Palliative Quality Palliative Quality: Screen for Code Status: Yes, Screen for Goals of Care: Yes, Screen for Pain: Yes, If Pain Regimen Started, Initiate Bowel Regimen: Yes, Screen for Nausea/Vomitting: Yes
[2017-03-22] MEDS ORDERED: Sennosides/Docusate Sodium TABLET PO PRN (17:31)
[2017-03-22] MEDS: Simethicone 80 MG TAB.CHEW PO PRN (22:10)
[2017-03-22] MEDS: Mirtazapine 15 MG TABLET PO SCH (22:10)
[2017-03-23] MEDS: Ipratropium/Albuterol Neb 3 ML IH SCH ×4 (05:00→22:49)
[2017-03-23 07:09] LABS: Basophils % 0.2 %; Eosinophils # 0.1 K/mcL (0.0-0.6); Eosinophils % 0.9 %; Hematocrit 27.4 % (35.3-44.9); Lymphocytes # 1.7 K/mcL (0.6-4.6); Lymphocytes % 15.8 %; Mean Corpuscular HGB Conc 32.8 g/dL (31.6-35.5); Mean Corpuscular Hemoglobin 36.4 pg (28.0-33.3); Mean Corpuscular Volume 110.9 fL (83.0-100.0); Mean Platelet Volume 11.9 fL (9.4-12.4); Monocytes % 9.1 %; Platelet Count 230 K/mcL (140-400); Red Blood Count 2.47 M/mcL (3.82-4.97); Red Cell Distribution Width 18.8 % (11.5-14.5)
[2017-03-23 07:13] LABS: Anisocytosis 1+ (Not Present); Macrocytosis Present (Not Present); Neutrophils # 7.9 K/mcL (1.6-8.9); Platelet Estimate Normal (Normal)
[2017-03-23 07:38] LABS: Alanine Aminotransferase 5 Units/L (7-52); Albumin 3.1 g/dL (3.5-5.7); Alkaline Phosphatase 70 Units/L (34-104); Aspartate Amino Transferase 10 Units/L (13-39); BUN/Creatinine Ratio 27 (6-26); Bilirubin,Total 1.3 mg/dL (0.3-1.0); Blood Urea Nitrogen 23 mg/dL (8-23); Carbon Dioxide 27 mEq/L (23-29); Chloride 100 mEq/L (98-107); Glucose 168 mg/dL (70-105); Osmolality,Calculated 290 (280-300); Potassium 4.7 mEq/L (3.5-5.1); Sodium 136 mEq/L (136-145); eGFR For African Americans > 60 (> 60); eGFR For Non-African Americans > 60 (> 60)
--- NOTE | 2017-03-23 07:57 | Palliative Progress Note ---
Date of Encounter: 03/23/17 Time of Encounter: 07:10 - Assessment and plan (1) Acute bronchitis Current Visit: Yes Status: Acute Assessment and plan: Plan per hospitalist team, patient does have a lot of rhonchi, we will go ahead and add in Mucinex. Qualifiers: Bronchitis organism: unspecified organism Qualified Code(s): J20.9 - Acute bronchitis, unspecified (2) Acute exacerbation of CHF (congestive heart failure) Current Visit: Yes Status: Acute Assessment and plan: Plan per hospitalist team continue current meds. Patient has requested AICD be shut off cardiology consult was requested regarding this. Qualifiers: Congestive heart failure type: diastolic Qualified Code(s): I50.33 - Acute on chronic diastolic (congestive) heart failure (3) Goals of care, counseling/discussion Current Visit: Yes Status: Acute Assessment and plan: Patient DNR CCA DNI. Patient has expressed an interest in transitioning to comfort care on discharge. His she is also requested having the AICD shut off. I have requested a cardiology consult regarding AICD shut down. I did explain to her that the pacemaker will be left alone. (4) Anemia Current Visit: Yes Status: Chronic Assessment and plan: Hemoglobin looks better today. Continue to watch plan per hospitalist team Qualifiers: Anemia type: folate deficiency Folate deficiency anemia type: dietary Qualified Code(s): 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 (5) Chest pain Current Visit: No Status: Acute Assessment and plan: Patient has had no further chest discomfort since starting up on the oxycodone yesterday, over the patient has not had any doses of this. We will continue to watch. Qualifiers: Chest pain type: unspecified Qualified Code(s): R07.9 - Chest pain, unspecified - Time Spent With Patient Total time spent is greater than 50% in coordination of care (as documented) at patient's floor/unit and/or counseling patient: - Subjective Interval history: She states she had a restless night. Did start Remeron last night. Complaining of any chest discomfort at this time has tried no medications for it. Looking forward to having her AICD shut off. Looking forward to nutrition consultation. - Constitutional Vitals: Abnormal lab results RBC 2.47 M/mcL (3.82-4.97) L 03/23/17 06:38 Hgb 9.0 g/dL (11.5-15.4) L 03/23/17 06:38 Hct 27.4 % (35.3-44.9) L 03/23/17 06:38 MCV 110.9 fL (83.0-100.0) H 03/23/17 06:38 MCH 36.4 pg (28.0-33.3) H 03/23/17 06:38 RDW 18.8 % (11.5-14.5) H 03/23/17 06:38 Band Neutrophils % 15.0 % (0-4) H 03/21/17 06:27 Hypochromasia Present (Not Present) A 03/22/17 04:43 Poikilocytosis 1+ (Not Present) A 03/22/17 04:43 Anisocytosis 1+ (Not Present) A 03/23/17 06:38 Macrocytosis Present (Not Present) A 03/23/17 06:38 Target Cells 1+ (Not Present) A 03/22/17 04:43 Tear Drop Cells 1+ (Not Present) A 03/22/17 04:43 Ovalocytes 1+ (Not Present) A 03/22/17 04:43 Acanthocytes (Spur) 1+ (Not Present) A 03/20/17 10:50 BUN/Creatinine Ratio 27 (6-26) H 03/23/17 06:38 Glucose 168 mg/dL (70-105) H 03/23/17 06:38 POC Glucose 159 (58-89) H 03/22/17 21:56 Hemoglobin A1c 6.2 % (-5.6) H 03/21/17 06:27 Transferrin 137 mg/dL (203-362) L 03/22/17 08:58 Total Bilirubin 1.3 mg/dL (0.3-1.0) H 03/23/17 06:38 AST 10 Units/L (13-39) L 03/23/17 06:38 ALT 5 Units/L (7-52) L 03/23/17 06:38 B-Natriuretic Peptide 204 pg/mL (Less than 100) H 03/20/17 10:50 Albumin 3.1 g/dL (3.5-5.7) L 03/23/17 06:38 Albumin/Globulin Ratio 0.9 (1.1-2.2) L 03/22/17 04:43 HDL Cholesterol 36 mg/dL (40-59) L 03/21/17 06:27 Vitamin B12 1163 pg/mL (250-1100) H 03/22/17 08:58 Folate 39.0 ng/mL (3.0-16.0) H 03/22/17 08:58 Coronavirus NL63 (PCR) DETECTED (Not Detect) A 03/20/17 15:23 Human Metapneumovir PCR DETECTED (Not Detect) A 03/20/17 15:23 General appearance: Present: no acute distress - Head Head exam: Present: atraumatic, normal inspection - Eye Eye exam: Present: normal appearance - ENT ENT exam: Present: mucous membranes moist - Respiratory Respiratory exam: Present: decreased breath sounds, rhonchi - Cardiovascular Cardiovascular exam: Present: RRR - GI/Abdominal GI/Abdominal exam: Present: normal bowel sounds, soft. Absent: tenderness - Extremities Exam Extremities exam: Present: pedal edema - Neurological Exam Neurological exam: Present: alert, oriented X3 - Psychiatric Psychiatric exam: Absent: agitated, anxious - Skin Skin exam: Present: dry, warm Palliative Quality Palliative Quality: Screen for Code Status: Yes, Screen for Goals of Care: Yes, Screen for Pain: Yes, If Pain Regimen Started, Initiate Bowel Regimen: Yes, Screen for Nausea/Vomitting: Yes - Labs CBC & Chem 7: 03/23/17 06:38 03/23/17 06:38 Labs: Laboratory Results - last 24 hr 03/22/17 03/22/17 03/22/17 04:43 08:14 08:58 WBC RBC Hgb Hct MCV MCH MCHC RDW Plt Count MPV Immature Gran % Seg Neutrophils % Lymphocytes % Monocytes % Eosinophils % Basophils % Neutrophils # Lymphocytes # Monocytes # Eosinophils # Basophils # Platelet Estimate Anisocytosis Macrocytosis Sodium 134 L Potassium 3.6 Chloride 98 Carbon Dioxide 30 H BUN 28 H Creatinine 0.93 Est GFR ( Amer) > 60 Est GFR (Non-Af Amer) 58 L BUN/Creatinine Ratio 30 H Glucose 165 H POC Glucose 168 H Calculated Osmolality 287 Calcium 8.6 Magnesium Iron % Saturation Transferrin Total Bilirubin 1.2 H AST 9 L ALT 5 L Alkaline Phosphatase 65 Serum Total Protein 6.0 L Albumin 2.8 L Globulin 3.2 Albumin/Globulin Ratio 0.9 L Vitamin B12 1163 H Folate 39.0 H TSH 1.981 Stool Occult Blood Specimen Rejected 03/22/17 03/22/17 03/22/17 08:58 10:24 12:15 WBC RBC Hgb Hct MCV MCH MCHC RDW Plt Count MPV Immature Gran % Seg Neutrophils % Lymphocytes % Monocytes % Eosinophils % Basophils % Neutrophils # Lymphocytes # Monocytes # Eosinophils # Basophils # Platelet Estimate Anisocytosis Macrocytosis Sodium Potassium Chloride Carbon Dioxide BUN Creatinine Est GFR ( Amer) Est GFR (Non-Af Amer) BUN/Creatinine Ratio Glucose POC Glucose 183 H Calculated Osmolality Calcium Magnesium 1.7 Iron 50 % Saturation 26 Transferrin 137 L Total Bilirubin AST ALT Alkaline Phosphatase Serum Total Protein Albumin Globulin Albumin/Globulin Ratio Vitamin B12 Folate TSH Cancelled Stool Occult Blood Negative Specimen Rejected 03/22/17 03/23/17 03/23/17 21:56 06:38 06:38 WBC 10.8 RBC 2.47 L Hgb 9.0 L Hct 27.4 L MCV 110.9 H MCH 36.4 H MCHC 32.8 RDW 18.8 H Plt Count 230 MPV 11.9 Immature Gran % 1.0 Seg Neutrophils % 73.0 Lymphocytes % 15.8 Monocytes % 9.1 Eosinophils % 0.9 Basophils % 0.2 Neutrophils # 7.9 Lymphocytes # 1.7 Monocytes # 1.0 Eosinophils # 0.1 Basophils # 0.0 Platelet Estimate Normal Anisocytosis 1+ A Macrocytosis Present A Sodium 136 Potassium 4.7 Chloride 100 Carbon Dioxide 27 BUN 23 Creatinine 0.84 Est GFR ( Amer) > 60 Est GFR (Non-Af Amer) > 60 BUN/Creatinine Ratio 27 H Glucose 168 H POC Glucose 159 H Calculated Osmolality 290 Calcium 9.0 Magnesium Iron % Saturation Transferrin Total Bilirubin 1.3 H AST 10 L ALT 5 L Alkaline Phosphatase 70 Serum Total Protein TNP Albumin 3.1 L Globulin Albumin/Globulin Ratio Vitamin B12 Folate TSH Stool Occult Blood Specimen Rejected 03/23/17 06:38 WBC RBC Hgb Hct MCV MCH MCHC RDW Plt Count MPV Immature Gran % Seg Neutrophils % Lymphocytes % Monocytes % Eosinophils % Basophils % Neutrophils # Lymphocytes # Monocytes # Eosinophils # Basophils # Platelet Estimate Anisocytosis Macrocytosis Sodium Potassium Chloride Carbon Dioxide BUN Creatinine Est GFR ( Amer) Est GFR (Non-Af Amer) BUN/Creatinine Ratio Glucose POC Glucose Calculated Osmolality Calcium Magnesium Iron % Saturation Transferrin Total Bilirubin AST ALT Alkaline Phosphatase Serum Total Protein Albumin Globulin Albumin/Globulin Ratio Vitamin B12 Folate TSH Stool Occult Blood Specimen Rejected Volume - Impressions Impressions Chest X-Ray 03/22/17 08:43 IMPRESSION: Cardiomegaly with vascular congestion and chronic interstitial lung changes. Left lower lobe atelectasis or infiltrate. D/ / 03/22/2017 09:39:38 Greg Patel MD / Jessica Mora Interpreting Provider: Greg Patel MD Consult Discharge Plan - Plan Referrals: Dev Aguilar Jr, MD [Primary Care Provider] -
--- NOTE | 2017-03-23 08:28 | Internal Med Progress Note ---
Date of Encounter: 03/23/17 Time of Encounter: 08:26 - Assessment and plan (1) Acute exacerbation of congestive heart failure Current Visit: Yes Status: Acute Assessment and plan: This is an acute exacerbation of combined systolic and diastolic heart failure. Continue with diuresis but will decrease to 40 mg IV daily. Continue to hold Coreg and losartan as her blood pressure is marginal still. Continue with nebulizers. She is on chronic 2 L of O2 via nasal cannula. Monitor I&Os. Continue fluid restrictions. Echo with EF 35-40% with indeterminate diastolic dysfunction. 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 Seems to be clinically stable. 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 Stools are negative for occult blood. Hemoglobin is actually up to 9.0 this morning. It was 7.8 yesterday. No signs of bleeding. No vitamin B12 or folate deficiency. 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 Continue Accu-Cheks. (5) Acute bronchitis Current Visit: Yes Status: Acute Assessment and plan: Positive coronavirus as well as human Metapneumovir virus. Started on zithro and received 1 day of it. I did stop that. However now given the new findings of fever this morning and a left lower lobe infiltrate seen on x-ray, I will be starting patient on Levaquin. Qualifiers: Bronchitis organism: unspecified organism Qualified Code(s): J20.9 - Acute bronchitis, unspecified (6) COPD (chronic obstructive pulmonary disease) Current Visit: Yes Status: Chronic Assessment and plan: Continue inhalers. Continue nebulizer treatments. Qualifiers: COPD type: emphysema Emphysema type: unspecified Qualified Code(s): J43.9 - Emphysema, unspecified (7) CAD (coronary artery disease) Current Visit: Yes Status: Chronic Assessment and plan: Hx of chronic CAD w.MT x3 and CABG x3. Continue Coreg, Cozaar, Lipitor, and Nitrostat when necessary. Continuous cardiac telemetry Qualifiers: Coronary Disease-Associated Artery/Lesion type: [place] artery [place] vs. transplanted heart: [place] heart Associated angina: angina presence unspecified Qualified Code(s): I25.10 - Atherosclerotic heart disease of [place] coronary artery without angina pectoris (8) GERD (gastroesophageal reflux disease) Current Visit: Yes Status: Chronic Assessment and plan: Continue with rales at Qualifiers: Esophagitis presence: esophagitis presence not specified Qualified Code(s) : K21.9 - Gastro-esophageal reflux disease without esophagitis (9) HLD (hyperlipidemia) Current Visit: Yes Status: Chronic Assessment and plan: Continue statin Qualifiers: Hyperlipidemia type: pure hypercholesterolemia Qualified Code(s): E78.00 - Pure hypercholesterolemia, unspecified; E78.0 - Pure hypercholesterolemia (10) HTN (hypertension) Current Visit: Yes Status: Chronic Assessment and plan: Blood pressure is on the lower side. Hold Coreg and losartan. Qualifiers: Hypertension type: essential hypertension Qualified Code(s): I10 - Essential (primary) hypertension (11) CKD (chronic kidney disease) stage 3, GFR 30-59 ml/min Current Visit: Yes Status: Chronic Assessment and plan: She is at about baseline. We will continue to monitor. Avoid unnecessary nephrotoxins. (12) DVT prophylaxis Current Visit: Yes Status: Acute Assessment and plan: Heparin subcutaneous (13) Goals of care, counseling/discussion Current Visit: Yes Status: Acute Assessment and plan: Appreciate palliative seen the patient. We may be heading towards hospice. Continue pain control. - Subjective Interval history: Patient was seen and examined. She had a temperature 100.0 this morning. The patient does have a cough. Chest x-ray did show infiltrates yesterday. Her blood pressure is better this morning. Admitted with exacerbation of CHF and acute bronchitis. She was seen by palliative yesterday. Remains on 2 L of oxygen which she is on chronically. Has been diuresing since admission. Denies chest pain. Has been afebrile. - Constitutional Vitals: Temp Pulse Resp BP Pulse Ox 100 F H 129 17 126/69 95 03/23/17 07:05 03/23/17 07:05 03/23/17 07:05 03/23/17 07:05 03/23/17 07:05 General appearance: Present: cooperative, mild distress (Respiratory), A&O X 3, pleasant, obese, answers questions appropriately Exam: GEN: NAD CVS: RRR. S1, S2, No m/r/g RESP: Diminished at the bases with bibasilar crackles ABD: Soft, NT, ND, +BS EXT: Plus edema. 2+ DP. No rashes NEURO: Nonfocal Internal Medicine: Result - Labs CBC & Chem 7: 03/23/17 06:38 03/23/17 06:38 Labs: Short CBC 03/23/17 Range/Units 06:38 WBC 10.8 (4.3-11.1) K/mcL Hgb 9.0 L (11.5-15.4) g/dL Hct 27.4 L (35.3-44.9) % Plt Count 230 (140-400) K/mcL Neutrophils # 7.9 (1.6-8.9) K/mcL BMP 03/22/17 03/23/17 04:43 06:38 Sodium 134 L 136 Potassium 3.6 4.7 Chloride 98 100 Carbon Dioxide 30 H 27 BUN 28 H 23 Creatinine 0.93 0.84 Glucose 165 H 168 H Calcium 8.6 9.0 Liver Function 03/22/17 03/23/17 Range/Units 04:43 06:38 Total Bilirubin 1.2 H 1.3 H (0.3-1.0) mg/dL AST 9 L 10 L (13-39) Units/L ALT 5 L 5 L (7-52) Units/L Alkaline Phosphatase 65 70 (34-104) Units/L Albumin 2.8 L 3.1 L (3.5-5.7) g/dL - Impressions Impressions Chest X-Ray 03/22/17 08:43 IMPRESSION: Cardiomegaly with vascular congestion and chronic interstitial lung changes. Left lower lobe atelectasis or infiltrate. D/ / 03/22/2017 09:39:38 Greg Patel MD / Jessica Mora Interpreting Provider: Greg Patel MD Consult Discharge Plan - Plan Referrals: Dev Aguilar Jr, MD [Primary Care Provider] -
[2017-03-23] MEDS: Loratadine 10 MG TABLET PO SCH (09:26)
[2017-03-23] MEDS: Magnesium Oxide 400 MG TABLET PO SCH ×3 (09:26→21:12)
[2017-03-23] MEDS: FLUoxetine 20 MG CAPSULE PO SCH (09:26)
[2017-03-23] MEDS: Insulin LISPRO 300 UNITS/3 ML VIAL SQ SCH ×4 (09:27→21:14)
[2017-03-23] MEDS: Furosemide 40 MG/4 ML VIAL IVP SCH ×2 (09:27→17:14)
[2017-03-23] MEDS: *HR* Heparin 5,000 UNIT/ML VIAL SQ SCH ×2 (09:27→17:14)
[2017-03-23] MEDS: *HR* Acetylcysteine 20% 600 MG/3 ML ORAL SYRINGE PO SCH ×3 (09:28→17:14)
[2017-03-23] MEDS: Folic Acid 1 MG TABLET PO SCH (09:28)
[2017-03-23] MEDS: Levofloxacin 500 MG/100 ML 500 MG/100 ML BAG IVPB SCH (09:28)
[2017-03-23] MEDS: Cholecalciferol (D-3) 1,000 UNIT TABLET PO SCH (09:28)
[2017-03-23] MEDS: *HR* OxyCODONE Immed Rel 5 MG TABLET PO PRN (09:34)
[2017-03-23] MEDS: Budesonide/Formoterol 160/4.5 MDI IH SCH ×2 (10:13→22:49)
--- NOTE | 2017-03-23 10:14 | Event Note ---
Date of Encounter: 03/23/17 Time of Encounter: 10:00 - Cardiology Event Note Patient discussed and reviewed with Dr. Alfaro, patient's request for ICD deactivation. Has active DNR/DNI/Comfort Care arrest. Patient seen this morning and confirms wishes to deactivate ICD and does not "desire to be shocked ". She denies any recent ICD shocks, denies any palpitations. She confirms wishes for ICD deactivation and her status of DNR/DNI/Comfort Care arrest. Patient reports family aware of plans and agreeable. Patient wishes to proceed with ICD deactivation tomorrow. I offered to contact company for deactivation today, however she prefers to wait until tomorrow. If develops any significant symptoms can placed magnet over device for deactivation until formerly deactivated. Discussed and reviewed with Dr. Lindsey. All questions answered. Plan for ICD deactivation tomorrow.
[2017-03-23 10:30] LABS: Total Protein 7.2 g/dL (6.4-8.9)
[2017-03-23] MEDS: Mirtazapine 15 MG TABLET PO SCH (21:12)
[2017-03-24] MEDS: *HR* Heparin 5,000 UNIT/ML VIAL SQ SCH ×3 (01:41→16:18)
[2017-03-24] MEDS: Ipratropium/Albuterol Neb 3 ML IH SCH ×4 (04:52→22:00)
[2017-03-24 05:03] LABS: Basophils % 0.3 %; Eosinophils # 0.1 K/mcL (0.0-0.6); Eosinophils % 1.4 %; Hematocrit 25.5 % (35.3-44.9); Hemoglobin 8.1 g/dL (11.5-15.4); Immature Granulocytes % 0.6 % (0-4); Lymphocytes # 1.2 K/mcL (0.6-4.6); Lymphocytes % 16.1 %; Mean Corpuscular HGB Conc 31.8 g/dL (31.6-35.5); Mean Corpuscular Hemoglobin 35.8 pg (28.0-33.3); Mean Corpuscular Volume 112.8 fL (83.0-100.0); Mean Platelet Volume 11.2 fL (9.4-12.4); Monocytes # 0.8 K/mcL (0.0-1.3); Monocytes % 10.3 %; Neutrophils # 5.2 K/mcL (1.6-8.9); Platelet Count 222 K/mcL (140-400); Red Blood Count 2.26 M/mcL (3.82-4.97); Red Cell Distribution Width 18.8 % (11.5-14.5); Segmented Neutrophils % 71.3 %
[2017-03-24 05:30] LABS: Alanine Aminotransferase 5 Units/L (7-52); Albumin/Globulin Ratio 0.9 (1.1-2.2); Alkaline Phosphatase 66 Units/L (34-104); Aspartate Amino Transferase 8 Units/L (13-39); BUN/Creatinine Ratio 24 (6-26); Bilirubin,Total 0.8 mg/dL (0.3-1.0); Blood Urea Nitrogen 23 mg/dL (8-23); Calcium 9.1 mg/dL (8.6-10.3); Carbon Dioxide 33 mEq/L (23-29); Chloride 99 mEq/L (98-107); Globulin 3.4 g/dL (2.4-3.5); Glucose 174 mg/dL (70-105); Osmolality,Calculated 292 (280-300); Potassium 3.9 mEq/L (3.5-5.1); Sodium 137 mEq/L (136-145); Total Protein 6.4 g/dL (6.4-8.9); eGFR For African Americans > 60 (> 60); eGFR For Non-African Americans 57 (> 60)
[2017-03-24 05:51] LABS: Macrocytosis Present (Not Present); Platelet Estimate Normal (Normal)
[2017-03-24] MEDS: FLUoxetine 20 MG CAPSULE PO SCH (09:13)
[2017-03-24] MEDS: Magnesium Oxide 400 MG TABLET PO SCH ×3 (09:14→20:58)
[2017-03-24] MEDS: Folic Acid 1 MG TABLET PO SCH (09:14)
[2017-03-24] MEDS: Furosemide 40 MG/4 ML VIAL IVP SCH (09:14)
[2017-03-24] MEDS: Loratadine 10 MG TABLET PO SCH (09:14)
[2017-03-24] MEDS: Cholecalciferol (D-3) 1,000 UNIT TABLET PO SCH (09:14)
[2017-03-24] MEDS: Insulin LISPRO 300 UNITS/3 ML VIAL SQ SCH ×4 (09:14→20:59)
[2017-03-24] MEDS: *HR* Acetylcysteine 20% 600 MG/3 ML ORAL SYRINGE PO SCH ×3 (09:15→16:18)
--- NOTE | 2017-03-24 09:32 | Palliative Progress Note ---
<Malcolm Browne - Last Filed: 03/24/17 09:25> Date of Encounter: 03/24/17 Time of Encounter: 09:20 - Assessment and plan (1) Goals of care, counseling/discussion Current Visit: Yes Status: Acute Assessment and plan: Patient current code status is DNR CCA DNI. Patient has requested having the AICD shut off. Nestor Yang CNP has confirmed that the orders to have the AICD deactivated are in and that it should be deactivated by noon today. Palliative team will continue to follow. (2) Chest pain Current Visit: No Status: Acute Assessment and plan: Patient admits chest soreness with cough. She admits Oxycodone has improved the pain. Will continue to monitor the patient closely. Qualifiers: Chest pain type: unspecified Qualified Code(s): R07.9 - Chest pain, unspecified (3) Acute exacerbation of CHF (congestive heart failure) Current Visit: Yes Status: Acute Assessment and plan: Plan per hospitalist team to continue current meds. Patient AICD will be deactivated by noon today per Nestor Yang CNP. Qualifiers: Congestive heart failure type: diastolic Qualified Code(s): I50.33 - Acute on chronic diastolic (congestive) heart failure (4) Acute bronchitis Current Visit: Yes Status: Acute Assessment and plan: Rales and ronchi are heard throughout lung exam. Plan is per hospitalist team. Qualifiers: Bronchitis organism: unspecified organism Qualified Code(s): J20.9 - Acute bronchitis, unspecified - Time Spent With Patient Total time spent is greater than 50% in coordination of care (as documented) at patient's floor/unit and/or counseling patient: less than 15 minutes - Subjective Interval history: Patient was seen and examined at bedside. Patient was in the middle of having breakfast. Nestor Yang CNP, was in the room with the patient as well and informed the patient and me that the orders to deactivate the patient's AICD is in and that it should be deactivated by noon today. The patient agrees and understand the plan to deactivate her AICD today. Patient is a pleasant woman and appears comfortable and in no acute distress. She denies any chest pain or difficulty breathing, but admits that her chest feels sore, especially when she coughs. She admits she has an appetite but does not want to eat a lot because "when I get full, it's harder for me to breath". She has no other concerns at this time. She confirms her code status of DBR-Comfort Care arrest DNI. - Constitutional Vitals: Abnormal lab results RBC 2.26 M/mcL (3.82-4.97) L 03/24/17 04:36 Hgb 8.1 g/dL (11.5-15.4) L 03/24/17 04:36 Hct 25.5 % (35.3-44.9) L 03/24/17 04:36 MCV 112.8 fL (83.0-100.0) H 03/24/17 04:36 MCH 35.8 pg (28.0-33.3) H 03/24/17 04:36 RDW 18.8 % (11.5-14.5) H 03/24/17 04:36 Band Neutrophils % 15.0 % (0-4) H 03/21/17 06:27 Hypochromasia Present (Not Present) A 03/22/17 04:43 Poikilocytosis 1+ (Not Present) A 03/22/17 04:43 Anisocytosis 1+ (Not Present) A 03/23/17 06:38 Macrocytosis Present (Not Present) A 03/24/17 04:36 Target Cells 1+ (Not Present) A 03/22/17 04:43 Tear Drop Cells 1+ (Not Present) A 03/22/17 04:43 Ovalocytes 1+ (Not Present) A 03/22/17 04:43 Acanthocytes (Spur) 1+ (Not Present) A 03/20/17 10:50 Carbon Dioxide 33 mEq/L (23-29) H 03/24/17 04:36 Est GFR (Non-Af Amer) 57 (> 60) L 03/24/17 04:36 Glucose 174 mg/dL (70-105) H 03/24/17 04:36 POC Glucose 220 (58-89) H 03/23/17 21:08 Hemoglobin A1c 6.2 % (-5.6) H 03/21/17 06:27 Transferrin 137 mg/dL (203-362) L 03/22/17 08:58 AST 8 Units/L (13-39) L 03/24/17 04:36 ALT 5 Units/L (7-52) L 03/24/17 04:36 B-Natriuretic Peptide 204 pg/mL (Less than 100) H 03/20/17 10:50 Albumin 3.0 g/dL (3.5-5.7) L 03/24/17 04:36 Albumin/Globulin Ratio 0.9 (1.1-2.2) L 03/24/17 04:36 HDL Cholesterol 36 mg/dL (40-59) L 03/21/17 06:27 Vitamin B12 1163 pg/mL (250-1100) H 03/22/17 08:58 Folate 39.0 ng/mL (3.0-16.0) H 03/22/17 08:58 Coronavirus NL63 (PCR) DETECTED (Not Detect) A 03/20/17 15:23 Human Metapneumovir PCR DETECTED (Not Detect) A 03/20/17 15:23 General appearance: Present: cooperative. Absent: febrile, no acute distress, severe distress - Head Head exam: Present: atraumatic - Eye Eye exam: Present: normal appearance, PERRL. Absent: conjunctival injection, periorbital tenderness, scleral icterus Pupils: Present: PERRL - Neck Neck exam: Present: full ROM, normal inspection. Absent: lymphadenopathy, tenderness - Respiratory Respiratory exam: Present: chest wall tenderness, decreased breath sounds, rales , rhonchi. Absent: accessory muscle use, respiratory distress, tachypnea Additional comments: Patient is on 2L of oxygen. Productive cough is present on exam. No hemoptysis examined. - Expanded Respiratory Exam Location: decreased breath sounds: Left, Right, Lower, rales: Left, Right, Upper , Lower, rhonchi: Left, Right, Upper, Lower - Cardiovascular Cardiovascular exam: Present: RRR, +S1, +S2. Absent: bradycardia, gallop, systolic murmur, tachycardia - GI/Abdominal GI/Abdominal exam: Present: soft. Absent: distended, guarding, tenderness - Extremities Exam Extremities exam: Present: pedal edema. Absent: calf tenderness, tenderness - Neurological Exam Neurological exam: Present: alert, oriented X3. Absent: altered, motor sensory deficit, no focal deficits, facial droop, speech deficit Palliative Quality Palliative Quality: Screen for Code Status: Yes, Screen for Goals of Care: Yes, Screen for Pain: Yes, If Pain Regimen Started, Initiate Bowel Regimen: Yes, Screen for Nausea/Vomitting: Yes - Labs CBC & Chem 7: 03/24/17 04:36 03/24/17 04:36 Labs: Laboratory Results - last 24 hr 03/22/17 03/23/17 03/23/17 16:39 10:00 10:56 WBC RBC Hgb Hct MCV MCH MCHC RDW Plt Count MPV Immature Gran % Seg Neutrophils % Lymphocytes % Monocytes % Eosinophils % Basophils % Neutrophils # Lymphocytes # Monocytes # Eosinophils # Basophils # Platelet Estimate Macrocytosis Sodium Potassium Chloride Carbon Dioxide BUN Creatinine Est GFR ( Amer) Est GFR (Non-Af Amer) BUN/Creatinine Ratio Glucose POC Glucose 141 H 276 H Calculated Osmolality Calcium Total Bilirubin AST ALT Alkaline Phosphatase Serum Total Protein 7.2 Albumin Globulin Albumin/Globulin Ratio 03/23/17 03/23/17 03/24/17 15:42 21:08 04:36 WBC 7.3 RBC 2.26 L Hgb 8.1 L Hct 25.5 L MCV 112.8 H MCH 35.8 H MCHC 31.8 RDW 18.8 H Plt Count 222 MPV 11.2 Immature Gran % 0.6 Seg Neutrophils % 71.3 Lymphocytes % 16.1 Monocytes % 10.3 Eosinophils % 1.4 Basophils % 0.3 Neutrophils # 5.2 Lymphocytes # 1.2 Monocytes # 0.8 Eosinophils # 0.1 Basophils # 0.0 Platelet Estimate Normal Macrocytosis Present A Sodium Potassium Chloride Carbon Dioxide BUN Creatinine Est GFR ( Amer) Est GFR (Non-Af Amer) BUN/Creatinine Ratio Glucose POC Glucose 137 H 220 H Calculated Osmolality Calcium Total Bilirubin AST ALT Alkaline Phosphatase Serum Total Protein Albumin Globulin Albumin/Globulin Ratio 03/24/17 04:36 WBC RBC Hgb Hct MCV MCH MCHC RDW Plt Count MPV Immature Gran % Seg Neutrophils % Lymphocytes % Monocytes % Eosinophils % Basophils % Neutrophils # Lymphocytes # Monocytes # Eosinophils # Basophils # Platelet Estimate Macrocytosis Sodium 137 Potassium 3.9 Chloride 99 Carbon Dioxide 33 H BUN 23 Creatinine 0.95 Est GFR ( Amer) > 60 Est GFR (Non-Af Amer) 57 L BUN/Creatinine Ratio 24 Glucose 174 H POC Glucose Calculated Osmolality 292 Calcium 9.1 Total Bilirubin 0.8 AST 8 L ALT 5 L Alkaline Phosphatase 66 Serum Total Protein 6.4 Albumin 3.0 L Globulin 3.4 Albumin/Globulin Ratio 0.9 L Consult Discharge Plan - Plan Referrals: Dev Aguilar Jr, MD [Primary Care Provider] - (web request 03/24/2017) <Ceasar Alfaro - Last Filed: 03/24/17 09:48> Date of Encounter: 03/24/17 - Assessment and plan (1) Acute bronchitis Current Visit: Yes Status: Acute Qualifiers: Bronchitis organism: unspecified organism Qualified Code(s): J20.9 - Acute bronchitis, unspecified (2) Acute exacerbation of CHF (congestive heart failure) Current Visit: Yes Status: Acute Qualifiers: Congestive heart failure type: diastolic Qualified Code(s): I50.33 - Acute on chronic diastolic (congestive) heart failure (3) Goals of care, counseling/discussion Current Visit: Yes Status: Acute (4) Anemia Current Visit: Yes Status: Chronic Qualifiers: Anemia type: folate deficiency Folate deficiency anemia type: dietary Qualified Code(s): 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 (5) Chest pain Current Visit: No Status: Acute Qualifiers: Chest pain type: unspecified Qualified Code(s): R07.9 - Chest pain, unspecified - Time Spent With Patient Total time spent is greater than 50% in coordination of care (as documented) at patient's floor/unit and/or counseling patient: - Constitutional Vitals: Abnormal lab results RBC 2.26 M/mcL (3.82-4.97) L 03/24/17 04:36 Hgb 8.1 g/dL (11.5-15.4) L 03/24/17 04:36 Hct 25.5 % (35.3-44.9) L 03/24/17 04:36 MCV 112.8 fL (83.0-100.0) H 03/24/17 04:36 MCH 35.8 pg (28.0-33.3) H 03/24/17 04:36 RDW 18.8 % (11.5-14.5) H 03/24/17 04:36 Band Neutrophils % 15.0 % (0-4) H 03/21/17 06:27 Hypochromasia Present (Not Present) A 03/22/17 04:43 Poikilocytosis 1+ (Not Present) A 03/22/17 04:43 Anisocytosis 1+ (Not Present) A 03/23/17 06:38 Macrocytosis Present (Not Present) A 03/24/17 04:36 Target Cells 1+ (Not Present) A 03/22/17 04:43 Tear Drop Cells 1+ (Not Present) A 03/22/17 04:43 Ovalocytes 1+ (Not Present) A 03/22/17 04:43 Acanthocytes (Spur) 1+ (Not Present) A 03/20/17 10:50 Carbon Dioxide 33 mEq/L (23-29) H 03/24/17 04:36 Est GFR (Non-Af Amer) 57 (> 60) L 03/24/17 04:36 Glucose 174 mg/dL (70-105) H 03/24/17 04:36 POC Glucose 220 (58-89) H 03/23/17 21:08 Hemoglobin A1c 6.2 % (-5.6) H 03/21/17 06:27 Transferrin 137 mg/dL (203-362) L 03/22/17 08:58 AST 8 Units/L (13-39) L 03/24/17 04:36 ALT 5 Units/L (7-52) L 03/24/17 04:36 B-Natriuretic Peptide 204 pg/mL (Less than 100) H 03/20/17 10:50 Albumin 3.0 g/dL (3.5-5.7) L 03/24/17 04:36 Albumin/Globulin Ratio 0.9 (1.1-2.2) L 03/24/17 04:36 HDL Cholesterol 36 mg/dL (40-59) L 03/21/17 06:27 Vitamin B12 1163 pg/mL (250-1100) H 03/22/17 08:58 Folate 39.0 ng/mL (3.0-16.0) H 03/22/17 08:58 Coronavirus NL63 (PCR) DETECTED (Not Detect) A 03/20/17 15:23 Human Metapneumovir PCR DETECTED (Not Detect) A 03/20/17 15:23 - Attending Attestation I examined this patient and my medical decision-making was reviewed with the Resident Physician. I agree with the documented findings, disposition and treatment plan as described except to the extent set forth below. - Labs CBC & Chem 7: 03/24/17 04:36 03/24/17 04:36 Labs: Laboratory Results - last 24 hr 03/22/17 03/23/17 03/23/17 16:39 10:00 10:56 WBC RBC Hgb Hct MCV MCH MCHC RDW Plt Count MPV Immature Gran % Seg Neutrophils % Lymphocytes % Monocytes % Eosinophils % Basophils % Neutrophils # Lymphocytes # Monocytes # Eosinophils # Basophils # Platelet Estimate Macrocytosis Sodium Potassium Chloride Carbon Dioxide BUN Creatinine Est GFR ( Amer) Est GFR (Non-Af Amer) BUN/Creatinine Ratio Glucose POC Glucose 141 H 276 H Calculated Osmolality Calcium Total Bilirubin AST ALT Alkaline Phosphatase Serum Total Protein 7.2 Albumin Globulin Albumin/Globulin Ratio 03/23/17 03/23/17 03/24/17 15:42 21:08 04:36 WBC 7.3 RBC 2.26 L Hgb 8.1 L Hct 25.5 L MCV 112.8 H MCH 35.8 H MCHC 31.8 RDW 18.8 H Plt Count 222 MPV 11.2 Immature Gran % 0.6 Seg Neutrophils % 71.3 Lymphocytes % 16.1 Monocytes % 10.3 Eosinophils % 1.4 Basophils % 0.3 Neutrophils # 5.2 Lymphocytes # 1.2 Monocytes # 0.8 Eosinophils # 0.1 Basophils # 0.0 Platelet Estimate Normal Macrocytosis Present A Sodium Potassium Chloride Carbon Dioxide BUN Creatinine Est GFR ( Amer) Est GFR (Non-Af Amer) BUN/Creatinine Ratio Glucose POC Glucose 137 H 220 H Calculated Osmolality Calcium Total Bilirubin AST ALT Alkaline Phosphatase Serum Total Protein Albumin Globulin Albumin/Globulin Ratio 03/24/17 04:36 WBC RBC Hgb Hct MCV MCH MCHC RDW Plt Count MPV Immature Gran % Seg Neutrophils % Lymphocytes % Monocytes % Eosinophils % Basophils % Neutrophils # Lymphocytes # Monocytes # Eosinophils # Basophils # Platelet Estimate Macrocytosis Sodium 137 Potassium 3.9 Chloride 99 Carbon Dioxide 33 H BUN 23 Creatinine 0.95 Est GFR ( Amer) > 60 Est GFR (Non-Af Amer) 57 L BUN/Creatinine Ratio 24 Glucose 174 H POC Glucose Calculated Osmolality 292 Calcium 9.1 Total Bilirubin 0.8 AST 8 L ALT 5 L Alkaline Phosphatase 66 Serum Total Protein 6.4 Albumin 3.0 L Globulin 3.4 Albumin/Globulin Ratio 0.9 L
--- NOTE | 2017-03-24 09:41 | Event Note ---
Date of Encounter: 03/24/17 Time of Encounter: 09:00 - Cardiology Event Note Patient still desires ICD deactivation. Discussed with palliative care team. ICD to be deactivated around lunchtime today per patient request. All questions answered, reconsult as needed.
[2017-03-24] MEDS: Budesonide/Formoterol 160/4.5 MDI IH SCH ×2 (10:09→22:01)
--- NOTE | 2017-03-24 11:06 | Internal Med Progress Note ---
Date of Encounter: 03/24/17 Time of Encounter: 11:02 - Assessment and plan (1) Acute exacerbation of congestive heart failure Current Visit: Yes Status: Acute Assessment and plan: This is an acute exacerbation of combined systolic and diastolic heart failure. Continue with diuresis. We will switch to oral Lasix home dose of 40 mg twice a day. Continue to hold Coreg and losartan as her blood pressure is marginal still. Continue with nebulizers. She is on chronic 2 L of O2 via nasal cannula. Monitor I&Os. Continue fluid restrictions. Echo with EF 35-40 % with indeterminate diastolic dysfunction. 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 Seems to be clinically stable. 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 Stools are negative for occult blood. Hemoglobin stable around baseline. No signs of bleeding. No vitamin B12 or folate deficiency. 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 Continue Accu-Cheks. (5) Acute bronchitis Current Visit: Yes Status: Acute Assessment and plan: Positive coronavirus as well as human Metapneumovir virus. Continue Levaquin daily 2. Started on zithro and received 1 day of it. I did stop that. Qualifiers: Bronchitis organism: unspecified organism Qualified Code(s): J20.9 - Acute bronchitis, unspecified (6) COPD (chronic obstructive pulmonary disease) Current Visit: Yes Status: Chronic Assessment and plan: Continue inhalers. Continue nebulizer treatments. Qualifiers: COPD type: emphysema Emphysema type: unspecified Qualified Code(s): J43.9 - Emphysema, unspecified (7) CAD (coronary artery disease) Current Visit: Yes Status: Chronic Assessment and plan: Hx of chronic CAD w.NH x3 and CABG x3. Continue Coreg, Cozaar, Lipitor, and Nitrostat when necessary. Continuous cardiac telemetry Qualifiers: Coronary Disease-Associated Artery/Lesion type: [place] artery [place] vs. transplanted heart: [place] heart Associated angina: angina presence unspecified Qualified Code(s): I25.10 - Atherosclerotic heart disease of [place] coronary artery without angina pectoris (8) GERD (gastroesophageal reflux disease) Current Visit: Yes Status: Chronic Assessment and plan: Continue with rales at Qualifiers: Esophagitis presence: esophagitis presence not specified Qualified Code(s) : K21.9 - Gastro-esophageal reflux disease without esophagitis (9) HLD (hyperlipidemia) Current Visit: Yes Status: Chronic Assessment and plan: Continue statin Qualifiers: Hyperlipidemia type: pure hypercholesterolemia Qualified Code(s): E78.00 - Pure hypercholesterolemia, unspecified; E78.0 - Pure hypercholesterolemia (10) HTN (hypertension) Current Visit: Yes Status: Chronic Assessment and plan: Blood pressure is on the lower side. Hold Coreg and losartan. Qualifiers: Hypertension type: essential hypertension Qualified Code(s): I10 - Essential (primary) hypertension (11) CKD (chronic kidney disease) stage 3, GFR 30-59 ml/min Current Visit: Yes Status: Chronic Assessment and plan: She is at about baseline. We will continue to monitor. Avoid unnecessary nephrotoxins. (12) DVT prophylaxis Current Visit: Yes Status: Acute Assessment and plan: Heparin subcutaneous (13) Goals of care, counseling/discussion Current Visit: Yes Status: Acute Assessment and plan: Appreciate palliative seen the patient. Working on placement with hospice. Defibrillator to be turned off today. Continue pain control. - Subjective Interval history: Patient was seen and examined. As for the defibrillator turned off. She has been afebrile. The patient does have a cough. Admitted with exacerbation of CHF and acute bronchitis. She was seen by palliative yesterday. Remains on 2 L of oxygen which she is on chronically. Has been diuresing since admission. Denies chest pain. - Constitutional Vitals: Temp Pulse Resp BP Pulse Ox 98.0 F 99 18 111/66 98 03/24/17 09:10 03/24/17 09:10 03/24/17 10:11 03/24/17 09:10 03/24/17 10:11 General appearance: Present: cooperative, mild distress (Respiratory), A&O X 3, pleasant, obese, answers questions appropriately Exam: GEN: NAD CVS: RRR. S1, S2, No m/r/g RESP: Diminished at the bases with bibasilar crackles ABD: Soft, NT, ND, +BS EXT: trace edema. 2+ DP. No rashes NEURO: Nonfocal Internal Medicine: Result - Labs CBC & Chem 7: 03/24/17 04:36 03/24/17 04:36 Labs: Short CBC 03/24/17 Range/Units 04:36 WBC 7.3 (4.3-11.1) K/mcL Hgb 8.1 L (11.5-15.4) g/dL Hct 25.5 L (35.3-44.9) % Plt Count 222 (140-400) K/mcL Neutrophils # 5.2 (1.6-8.9) K/mcL BMP 03/24/17 04:36 Sodium 137 Potassium 3.9 Chloride 99 Carbon Dioxide 33 H BUN 23 Creatinine 0.95 Glucose 174 H Calcium 9.1 Liver Function 03/24/17 Range/Units 04:36 Total Bilirubin 0.8 (0.3-1.0) mg/dL AST 8 L (13-39) Units/L ALT 5 L (7-52) Units/L Alkaline Phosphatase 66 (34-104) Units/L Albumin 3.0 L (3.5-5.7) g/dL Consult Discharge Plan - Plan Referrals: Dev Aguilar Jr, MD [Primary Care Provider] - 03/31/17 10:00 am (web request )
[2017-03-24] MEDS: Furosemide 40 MG TABLET PO SCH (16:18)
[2017-03-24] MEDS: Mirtazapine 15 MG TABLET PO SCH (20:58)
[2017-03-24] MEDS: Benzonatate 100 MG CAPSULE PO PRN (21:53)
[2017-03-24] MEDS: *HR* OxyCODONE Immed Rel 5 MG TABLET PO PRN (23:32)
[2017-03-24] MEDS: Simethicone 80 MG TAB.CHEW PO PRN (23:32)
[2017-03-25] MEDS: *HR* Heparin 5,000 UNIT/ML VIAL SQ SCH ×3 (00:13→15:01)
[2017-03-25] MEDS: Ipratropium/Albuterol Neb 3 ML IH SCH ×2 (04:53→11:44)
[2017-03-25 05:58] LABS: Basophils % 0.4 %; Eosinophils # 0.1 K/mcL (0.0-0.6); Eosinophils % 1.8 %; Hematocrit 23.6 % (35.3-44.9); Hemoglobin 7.6 g/dL (11.5-15.4); Immature Granulocytes % 0.4 % (0-4); Lymphocytes # 1.1 K/mcL (0.6-4.6); Lymphocytes % 21.2 %; Mean Corpuscular HGB Conc 32.2 g/dL (31.6-35.5); Mean Corpuscular Hemoglobin 35.8 pg (28.0-33.3); Mean Corpuscular Volume 111.3 fL (83.0-100.0); Mean Platelet Volume 10.9 fL (9.4-12.4); Monocytes # 0.7 K/mcL (0.0-1.3); Monocytes % 13.3 %; Neutrophils # 3.2 K/mcL (1.6-8.9); Platelet Count 216 K/mcL (140-400); Red Blood Count 2.12 M/mcL (3.82-4.97); Red Cell Distribution Width 18.6 % (11.5-14.5); Segmented Neutrophils % 62.9 %
[2017-03-25 06:18] LABS: Alanine Aminotransferase 5 Units/L (7-52); Albumin 2.7 g/dL (3.5-5.7); Albumin/Globulin Ratio 0.8 (1.1-2.2); Alkaline Phosphatase 65 Units/L (34-104); Aspartate Amino Transferase 8 Units/L (13-39); BUN/Creatinine Ratio 28 (6-26); Bilirubin,Total 0.7 mg/dL (0.3-1.0); Blood Urea Nitrogen 25 mg/dL (8-23); Calcium 8.7 mg/dL (8.6-10.3); Carbon Dioxide 33 mEq/L (23-29); Chloride 99 mEq/L (98-107); Globulin 3.2 g/dL (2.4-3.5); Glucose 175 mg/dL (70-105); Osmolality,Calculated 293 (280-300); Potassium 3.8 mEq/L (3.5-5.1); Sodium 137 mEq/L (136-145); Total Protein 5.9 g/dL (6.4-8.9); eGFR For African Americans > 60 (> 60); eGFR For Non-African Americans > 60 (> 60)
[2017-03-25 06:25] LABS: Anisocytosis 1+ (Not Present); Macrocytosis Present (Not Present); Platelet Estimate Normal (Normal)
--- NOTE | 2017-03-25 07:12 | Electrocardiograph Report ---
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
[2017-03-25] MEDS: Folic Acid 1 MG TABLET PO SCH (07:46)
[2017-03-25] MEDS: Loratadine 10 MG TABLET PO SCH (07:46)
[2017-03-25] MEDS: Furosemide 40 MG TABLET PO SCH (07:46)
[2017-03-25] MEDS: *HR* Acetylcysteine 20% 600 MG/3 ML ORAL SYRINGE PO SCH ×2 (07:46→11:29)
[2017-03-25] MEDS: Magnesium Oxide 400 MG TABLET PO SCH ×2 (07:46→15:02)
[2017-03-25] MEDS: Levofloxacin 500 MG/100 ML 500 MG/100 ML BAG IVPB SCH (07:46)
[2017-03-25] MEDS: FLUoxetine 20 MG CAPSULE PO SCH (07:46)
[2017-03-25] MEDS: Cholecalciferol (D-3) 1,000 UNIT TABLET PO SCH (07:46)
[2017-03-25] MEDS: Insulin LISPRO 300 UNITS/3 ML VIAL SQ SCH ×2 (07:47→11:28)
--- NOTE | 2017-03-25 10:06 | Discharge Summary ---
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 (4) Diabetes mellitus type 2, noninsulin dependent Priority: Secondary Status: Chronic (5) Acute bronchitis Priority: Primary Status: Acute Qualifiers: Bronchitis organism: unspecified organism Qualified Code(s): J20.9 - Acute bronchitis, unspecified (6) COPD (chronic obstructive pulmonary disease) Priority: Secondary Status: Chronic Qualifiers: COPD type: emphysema Emphysema type: unspecified Qualified Code(s): J43.9 - Emphysema, unspecified (7) CAD (coronary artery disease) Priority: Secondary Status: Chronic Qualifiers: Coronary Disease-Associated Artery/Lesion type: zuni artery [place] vs. transplanted heart: zuni heart Associated angina: angina presence unspecified Qualified Code(s): I25.10 - Atherosclerotic heart disease of zuni coronary artery without angina pectoris (8) GERD (gastroesophageal reflux disease) Priority: Secondary Status: Chronic Qualifiers: Esophagitis presence: esophagitis presence not specified Qualified Code(s) : K21.9 - Gastro-esophageal reflux disease without esophagitis (9) HLD (hyperlipidemia) Priority: Secondary Status: Chronic Qualifiers: Hyperlipidemia type: pure hypercholesterolemia Qualified Code(s): E78.00 - Pure hypercholesterolemia, unspecified; E78.0 - Pure hypercholesterolemia (10) HTN (hypertension) Priority: Secondary Status: Chronic Qualifiers: Hypertension type: essential hypertension Qualified Code(s): I10 - Essential (primary) hypertension (11) CKD (chronic kidney disease) stage 3, GFR 30-59 ml/min Priority: Secondary Status: Chronic - Discharge Medications Prescriptions: Levofloxacin [Levaquin] 500 mg PO DAILY #5 tablet Home Medications: Allopurinol [Zyloprim] 300 mg PO QA 10/11/14 [History] Cholecalciferol (Vitamin D3) [Vitamin D3] 50,000 unit PO 10/11/14 [History] FLUoxetine HCl [Prozac] 20 mg PO QAM 10/11/14 [History] Furosemide [Lasix] 40 mg PO BID 10/11/14 [History] Magnesium Oxide [Mag-Ox] 400 mg PO TID 10/11/14 [History] SitaGLIPtin [Januvia] 100 mg PO QAM 10/11/14 [History] Fluticasone Propionate Nasal [Flonase] 50 mcg NS DAILY 01/25/15 [History] Folic Acid 1 mg PO DAILY #30 tablet 02/27/16 [Rx] Losartan [Cozaar] 25 mg PO DAILY #90 tablet 04/15/16 [Rx] Acetylcysteine [U-Rtptsl-a-Cysteine] 600 mg PO TIDWM 07/04/16 [History] Alendronate Sodium 70 mg PO TH 07/04/16 [History] Atorvastatin [Lipitor] 40 mg PO DAILY 07/04/16 [History] Cyanocobalamin (B-12) [Vitamin B12] 1,000 mcg IM QMONTH 07/04/16 [History] Loratadine [Allergy Relief] 10 mg PO DAILY 07/04/16 [History] Carvedilol [Coreg] 3.125 mg PO BIDWM #180 tablet 07/15/16 [Rx] Gabapentin [Neurontin] 300 mg PO HS #30 capsule 02/19/17 [Rx] Ondansetron HCl [Zofran] 4 mg PO Q8H PRN #15 tablet 02/19/17 [Rx] Budesonide/Formoterol 160/4.5 [Symbicort 160/4.5] 2 puff IH BIDR 03/11/17 [ History] Ferrous Sulfate 325 mg PO DAILY 03/11/17 [History] GuaiFENesin/Dextromethorphan [Fenesin Dm Ir Tablet] 1 each PO Q6H PRN 03/11/17 [ History] Ipratropium/Albuterol Neb [Duoneb] 3 ml IH QID 03/11/17 [History] Levothyroxine Sodium [Synthroid] 137 mcg PO QAM 03/11/17 [History] Nitroglycerin [Nitrolingual] 1 spray TL AD PRN 03/11/17 [History] Omeprazole [PriLOSEC] 20 mg PO DAILY 03/11/17 [History] Tramadol HCl [Ultram] 50 mg PO Q6H PRN 03/11/17 [History] ALPRAZolam [Xanax 0.5 MG Tablet] 0.5 mg PO HS PRN 03/20/17 [History] Levofloxacin [Levaquin] 500 mg PO DAILY #5 tablet 03/25/17 [Rx] Allergies/Adverse Reactions: 3 Allergy/AdvReac Type Severity Reaction Status Date / Time bee venom protein (honey bee) Allergy See Verified 03/20/17 12:49 Comments Iodinated Contrast- Oral and Allergy Hives Verified 03/20/17 12:49 IV Dye [Iodinated Contrast Media - IV Dye] Nickel Allergy Rash Verified 03/20/17 12:49 nitrofurantoin Allergy Difficulty Verified 03/20/17 12:49 [From Macrobid] Breathing Warfarin Allergy unknown Verified 03/20/17 12:49 aspirin AdvReac unknown Verified 03/20/17 12:49 Procedures/tests Complete & Pending: Procedures Performed prior 72 hours Category Date Time Status ECG 12 lead ECG [ECG] Routine Y 03/22/17 11:33 Completed Date of admission: 03/20/17 14:12 Primary care physician: Dev Aguilar Jr, MD Consults: 03/22/17 08:49 Consult to Palliative Care [CONS] Routine Comment: Consulting Provider: [facility] Reason for Consult: goals of care Call Completed: Yes 03/22/17 17:10 Consult to Cardiology [CONS] Routine Comment: Consulting Provider: Card[facility] [place] Reason for Consult: pt has aicd and would like to transition to comfort care she would like to have the defib function truned off Call Completed: No 03/22/17 17:25 Consult to Nutrition [CONS] Routine Comment: supplements she might like Consulting Provider: NUTRITION Reason for Dietary Consult: Diet Education - Patient Status Disposition: Home, Self-Care Overall status at discharge: patient is progressing back to baseline - Discharge Instructions Follow Up With: Dev Aguilar Jr, MD [Primary Care Provider] - 03/31/17 10:00 am (web request ) - Diet and Activity Activity: increase activity as tolerated Diet: diabetic diet Hospital course: Ms. Paredes is a 77 year old female with medical history arthritis, anemia, CHF, COPD, CAD, GERD, HLD, HTN, previous myocardial infarction 3, osteoporosis, COPD , thyroid disease presented from the ED with chief complaint shortness of breath and dyspnea since which became worse this morning. Pt. reported bilateral pedal edema, increase in abdominal girth, and 11 pound weight gain since . Reported cough, SOB, dyspnea, orthopnea, and unsteadiness on her feet. Initial x-ray showed prominent interstitial changes consistent with pulmonary edema. She was admitted under the hospitalist service for an acute exacerbation of combined systolic and diastolic heart failure. She also had symptoms of acute bronchitis. She tested positive for coronary virus as well as humanMetapneumovir virus. While hospitalized she had a temperature of 100 on 03/22 for which a chest x-ray showed infiltrates and she was put on Levaquin. She was discharged on Levaquin at the end initial course of treatment. We had palliative see the patient as the patient has expressed wishes towards comfort care and she was tired of being hospitalized. Palliative came and talked to the patient and the patient expressed that she wanted her ICD turned off which cardiology consulted for and the ICD was turned off. The patient was diuresed and eventually switched to oral Lasix home dose. The patient's CODE STATUS is DNR CCA/DNI. She was discharged to a nursing facility with the plans to transition to hospice there. He was stable for discharge 03/25. - Time Spent with Patient Total time spent providing and/or coordinating discharge services: Greater than 30 minutes - Constitutional Vitals: Temp Pulse Resp BP Pulse Ox 97.9 F 98 16 126/63 97 03/25/17 06:42 03/25/17 06:42 03/25/17 06:42 03/25/17 06:42 03/25/17 06:42 General appearance: Present: cooperative, mild distress (Respiratory), A&O X 3, pleasant, obese, answers questions appropriately Exam: GEN: NAD CVS: RRR. S1, S2, No m/r/g RESP: Diminished at the bases with bibasilar crackles ABD: Soft, NT, ND, +BS EXT: trace edema. 2+ DP. No rashes NEURO: Nonfocal
--- NOTE | 2017-03-25 10:08 | Physician Discharge Referral ---
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 (3) Anemia Priority: Secondary Status: Chronic (4) Diabetes mellitus type 2, noninsulin dependent Priority: Secondary Status: Chronic (5) Acute bronchitis Priority: Primary Status: Acute (6) COPD (chronic obstructive pulmonary disease) Priority: Secondary Status: Chronic (7) CAD (coronary artery disease) Status: Chronic (8) GERD (gastroesophageal reflux disease) Priority: Secondary Status: Chronic (9) HLD (hyperlipidemia) Priority: Secondary Status: Chronic (10) HTN (hypertension) Priority: Secondary Status: Chronic (11) CKD (chronic kidney disease) stage 3, GFR 30-59 ml/min Priority: Secondary Status: Chronic - Transfer Medications Prescriptions: Levofloxacin [Levaquin] 500 mg PO DAILY #5 tablet Home Medications: Allopurinol [Zyloprim] 300 mg PO QAM 10/11/14 [History] Cholecalciferol (Vitamin D3) [Vitamin D3] 50,000 unit PO TH 10/11/14 [History] FLUoxetine HCl [Prozac] 20 mg PO QAM 10/11/14 [History] Furosemide [Lasix] 40 mg PO BID 10/11/14 [History] Magnesium Oxide [Mag-Ox] 400 mg PO TID 10/11/14 [History] SitaGLIPtin [Januvia] 100 mg PO QAM 10/11/14 [History] Fluticasone Propionate Nasal [Flonase] 50 mcg NS DAILY 01/25/15 [History] Folic Acid 1 mg PO DAILY #30 tablet 02/27/16 [Rx] Losartan [Cozaar] 25 mg PO DAILY #90 tablet 04/15/16 [Rx] Acetylcysteine [H-Yjsssa-b-Cysteine] 600 mg PO TIDWM 07/04/16 [History] Alendronate Sodium 70 mg PO TH 07/04/16 [History] Atorvastatin [Lipitor] 40 mg PO DAILY 07/04/16 [History] Cyanocobalamin (B-12) [Vitamin B12] 1,000 mcg IM QMONTH 07/04/16 [History] Loratadine [Allergy Relief] 10 mg PO DAILY 07/04/16 [History] Carvedilol [Coreg] 3.125 mg PO BIDWM #180 tablet 07/15/16 [Rx] Gabapentin [Neurontin] 300 mg PO HS #30 capsule 02/19/17 [Rx] Ondansetron HCl [Zofran] 4 mg PO Q8H PRN #15 tablet 02/19/17 [Rx] Budesonide/Formoterol 160/4.5 [Symbicort 160/4.5] 2 puff IH BIDR 03/11/17 [ History] Ferrous Sulfate 325 mg PO DAILY 03/11/17 [History] GuaiFENesin/Dextromethorphan [Fenesin Dm Ir Tablet] 1 each PO Q6H PRN 03/11/17 [ History] Ipratropium/Albuterol Neb [Duoneb] 3 ml IH QID 03/11/17 [History] Levothyroxine Sodium [Synthroid] 137 mcg PO QAM 03/11/17 [History] Nitroglycerin [Nitrolingual] 1 spray TL AD PRN 03/11/17 [History] Omeprazole [PriLOSEC] 20 mg PO DAILY 03/11/17 [History] Tramadol HCl [Ultram] 50 mg PO Q6H PRN 03/11/17 [History] ALPRAZolam [Xanax 0.5 MG Tablet] 0.5 mg PO HS PRN 03/20/17 [History] Levofloxacin [Levaquin] 500 mg PO DAILY #5 tablet 03/25/17 [Rx] Allergies/Adverse Reactions: 3 Allergy/AdvReac Type Severity Reaction Status Date / Time bee venom protein (honey bee) Allergy See Verified 03/20/17 12:49 Comments Iodinated Contrast- Oral and Allergy Hives Verified 03/20/17 12:49 IV Dye [Iodinated Contrast Media - IV Dye] Nickel Allergy Rash Verified 03/20/17 12:49 nitrofurantoin Allergy Difficulty Verified 03/20/17 12:49 [From Macrobid] Breathing Warfarin Allergy unknown Verified 03/20/17 12:49 aspirin AdvReac unknown Verified 03/20/17 12:49 - Respiratory Orders Smoking Cessation: Smoking cessation has been advised. For more information, call the [place] Tobacco Quit Line at 2-991-OXXB-NOW. - Rehabiliation Orders Rehab Orders: Evaluation for Physical Therapy - Diet Orders Regular (diabetic) CERTIFICATION: I certify that the transfer of the above named patient to an Extended Care Facility is necessary for the continuing treatment of the diagnosis listed. The above information is true and accurate reflection of patient's current condition. Confidential - Redisclosure prohibited without a patient's written consent.
--- NOTE | 2017-03-25 10:45 | Palliative Progress Note ---
<Malcolm Browne - Last Filed: 03/25/17 10:39> Date of Encounter: 03/25/17 Time of Encounter: 08:40 - Assessment and plan (1) Goals of care, counseling/discussion Current Visit: Yes Status: Acute Assessment and plan: The patient's current code status is DNR CCA- DNI. The patient is likely to be discharged to signature with [facility] today. (2) Chest pain Current Visit: No Status: Acute Qualifiers: Chest pain type: unspecified Qualified Code(s): R07.9 - Chest pain, unspecified (3) Acute exacerbation of CHF (congestive heart failure) Current Visit: Yes Status: Acute Qualifiers: Congestive heart failure type: diastolic Qualified Code(s): I50.33 - Acute on chronic diastolic (congestive) heart failure (4) Acute bronchitis Current Visit: Yes Status: Acute Qualifiers: Bronchitis organism: unspecified organism Qualified Code(s): J20.9 - Acute bronchitis, unspecified - Time Spent With Patient Total time spent is greater than 50% in coordination of care (as documented) at patient's floor/unit and/or counseling patient: less than 15 minutes - Subjective Interval history: Patient was seen and examined at bedside. Patient was sleeping and resting comfortably and appears in no acute distress. Patient admitted she had a restless night due to her difficulty breathing and coughing and thus she is very exhausted this morning. She still complains of chest soreness when she coughs. She confirms that her AICD was deactivated yesterday. She denies any headache, vision changes, chest pain, or any abdominal pain at this time. Ms. Paredes confirms that she understand the plan is to discharge her to signature with [facility] likely today. She agrees with the plan. She has no other concerns at this time. - Constitutional Vitals: Abnormal lab results RBC 2.12 M/mcL (3.82-4.97) L 03/25/17 05:30 Hgb 7.6 g/dL (11.5-15.4) L 03/25/17 05:30 Hct 23.6 % (35.3-44.9) L 03/25/17 05:30 MCV 111.3 fL (83.0-100.0) H 03/25/17 05:30 MCH 35.8 pg (28.0-33.3) H 03/25/17 05:30 RDW 18.6 % (11.5-14.5) H 03/25/17 05:30 Band Neutrophils % 15.0 % (0-4) H 03/21/17 06:27 Hypochromasia Present (Not Present) A 03/22/17 04:43 Poikilocytosis 1+ (Not Present) A 03/22/17 04:43 Anisocytosis 1+ (Not Present) A 03/25/17 05:30 Macrocytosis Present (Not Present) A 03/25/17 05:30 Target Cells 1+ (Not Present) A 03/22/17 04:43 Tear Drop Cells 1+ (Not Present) A 03/22/17 04:43 Ovalocytes 1+ (Not Present) A 03/22/17 04:43 Acanthocytes (Spur) 1+ (Not Present) A 03/20/17 10:50 Carbon Dioxide 33 mEq/L (23-29) H 03/25/17 05:30 BUN 25 mg/dL (8-23) H 03/25/17 05:30 BUN/Creatinine Ratio 28 (6-26) H 03/25/17 05:30 Glucose 175 mg/dL (70-105) H 03/25/17 05:30 POC Glucose 220 (58-89) H 03/23/17 21:08 Hemoglobin A1c 6.2 % (-5.6) H 03/21/17 06:27 Transferrin 137 mg/dL (203-362) L 03/22/17 08:58 AST 8 Units/L (13-39) L 03/25/17 05:30 ALT 5 Units/L (7-52) L 03/25/17 05:30 B-Natriuretic Peptide 204 pg/mL (Less than 100) H 03/20/17 10:50 Serum Total Protein 5.9 g/dL (6.4-8.9) L 03/25/17 05:30 Albumin 2.7 g/dL (3.5-5.7) L 03/25/17 05:30 Albumin/Globulin Ratio 0.8 (1.1-2.2) L 03/25/17 05:30 HDL Cholesterol 36 mg/dL (40-59) L 03/21/17 06:27 Vitamin B12 1163 pg/mL (250-1100) H 03/22/17 08:58 Folate 39.0 ng/mL (3.0-16.0) H 03/22/17 08:58 Coronavirus NL63 (PCR) DETECTED (Not Detect) A 03/20/17 15:23 Human Metapneumovir PCR DETECTED (Not Detect) A 03/20/17 15:23 General appearance: Present: cooperative. Absent: febrile, no acute distress, severe distress - Head Head exam: Present: atraumatic - Eye Eye exam: Present: EOMI, normal appearance, PERRL. Absent: periorbital tenderness Pupils: Present: PERRL - Neck Neck exam: Present: full ROM, normal inspection. Absent: lymphadenopathy, tenderness - Respiratory Respiratory exam: Present: chest wall tenderness, decreased breath sounds, rales , rhonchi. Absent: respiratory distress - Expanded Respiratory Exam Location: decreased breath sounds: Left, Lower, rales: Left, Right, Upper, Lower , rhonchi: Left, Right, Upper, Lower - Cardiovascular Cardiovascular exam: Present: RRR, +S1, +S2. Absent: bradycardia, gallop, rubs , systolic murmur, tachycardia - GI/Abdominal GI/Abdominal exam: Present: soft. Absent: distended, guarding, tenderness - Extremities Exam Extremities exam: Present: pedal edema (Pedal edema bilaterally). Absent: calf tenderness Additional comments: Bilateral lower extremities has +2 pitting edema. Distal pulses intact and +2 bilaterally - Neurological Exam Neurological exam: Present: alert, CN II-XII intact, oriented X3. Absent: altered, facial droop, speech deficit - Skin Skin exam: Present: intact, warm. Absent: cyanosis, diaphoretic, mottled Palliative Quality Palliative Quality: Screen for Code Status: Yes, Screen for Goals of Care: Yes, Screen for Pain: Yes, If Pain Regimen Started, Initiate Bowel Regimen: Yes, Screen for Nausea/Vomitting: Yes - Labs CBC & Chem 7: 03/25/17 05:30 03/25/17 05:30 Labs: Laboratory Results - last 24 hr 03/25/17 03/25/17 05:30 05:30 WBC 5.1 RBC 2.12 L Hgb 7.6 L Hct 23.6 L MCV 111.3 H MCH 35.8 H MCHC 32.2 RDW 18.6 H Plt Count 216 MPV 10.9 Immature Gran % 0.4 Seg Neutrophils % 62.9 Lymphocytes % 21.2 Monocytes % 13.3 Eosinophils % 1.8 Basophils % 0.4 Neutrophils # 3.2 Lymphocytes # 1.1 Monocytes # 0.7 Eosinophils # 0.1 Basophils # 0.0 Platelet Estimate Normal Anisocytosis 1+ A Macrocytosis Present A Sodium 137 Potassium 3.8 Chloride 99 Carbon Dioxide 33 H BUN 25 H Creatinine 0.88 Est GFR ( Amer) > 60 Est GFR (Non-Af Amer) > 60 BUN/Creatinine Ratio 28 H Glucose 175 H Calculated Osmolality 293 Calcium 8.7 Total Bilirubin 0.7 AST 8 L ALT 5 L Alkaline Phosphatase 65 Serum Total Protein 5.9 L Albumin 2.7 L Globulin 3.2 Albumin/Globulin Ratio 0.8 L Consult Discharge Plan - Plan Referrals: Dev Aguilar Jr, MD [Primary Care Provider] - 03/31/17 10:00 am (web request ) Prescriptions: Levofloxacin [Levaquin] 500 mg PO DAILY #5 tablet <Ceasar Alfaro - Last Filed: 03/25/17 12:35> Date of Encounter: 03/25/17 - Assessment and plan (1) Acute bronchitis Current Visit: Yes Status: Acute Qualifiers: Bronchitis organism: unspecified organism Qualified Code(s): J20.9 - Acute bronchitis, unspecified (2) Acute exacerbation of CHF (congestive heart failure) Current Visit: Yes Status: Acute Qualifiers: Congestive heart failure type: diastolic Qualified Code(s): I50.33 - Acute on chronic diastolic (congestive) heart failure (3) Goals of care, counseling/discussion Current Visit: Yes Status: Acute (4) Anemia Current Visit: Yes Status: Chronic Qualifiers: Anemia type: folate deficiency Folate deficiency anemia type: dietary Qualified Code(s): 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 (5) Chest pain Current Visit: No Status: Acute Qualifiers: Chest pain type: unspecified Qualified Code(s): R07.9 - Chest pain, unspecified - Time Spent With Patient Total time spent is greater than 50% in coordination of care (as documented) at patient's floor/unit and/or counseling patient: - Constitutional Vitals: Abnormal lab results RBC 2.12 M/mcL (3.82-4.97) L 03/25/17 05:30 Hgb 7.6 g/dL (11.5-15.4) L 03/25/17 05:30 Hct 23.6 % (35.3-44.9) L 03/25/17 05:30 MCV 111.3 fL (83.0-100.0) H 03/25/17 05:30 MCH 35.8 pg (28.0-33.3) H 03/25/17 05:30 RDW 18.6 % (11.5-14.5) H 03/25/17 05:30 Band Neutrophils % 15.0 % (0-4) H 03/21/17 06:27 Hypochromasia Present (Not Present) A 03/22/17 04:43 Poikilocytosis 1+ (Not Present) A 03/22/17 04:43 Anisocytosis 1+ (Not Present) A 03/25/17 05:30 Macrocytosis Present (Not Present) A 03/25/17 05:30 Target Cells 1+ (Not Present) A 03/22/17 04:43 Tear Drop Cells 1+ (Not Present) A 03/22/17 04:43 Ovalocytes 1+ (Not Present) A 03/22/17 04:43 Acanthocytes (Spur) 1+ (Not Present) A 03/20/17 10:50 Carbon Dioxide 33 mEq/L (23-29) H 03/25/17 05:30 BUN 25 mg/dL (8-23) H 03/25/17 05:30 BUN/Creatinine Ratio 28 (6-26) H 03/25/17 05:30 Glucose 175 mg/dL (70-105) H 03/25/17 05:30 POC Glucose 180 (58-89) H 03/25/17 06:50 Hemoglobin A1c 6.2 % (-5.6) H 03/21/17 06:27 Transferrin 137 mg/dL (203-362) L 03/22/17 08:58 AST 8 Units/L (13-39) L 03/25/17 05:30 ALT 5 Units/L (7-52) L 03/25/17 05:30 B-Natriuretic Peptide 204 pg/mL (Less than 100) H 03/20/17 10:50 Serum Total Protein 5.9 g/dL (6.4-8.9) L 03/25/17 05:30 Albumin 2.7 g/dL (3.5-5.7) L 03/25/17 05:30 Albumin/Globulin Ratio 0.8 (1.1-2.2) L 03/25/17 05:30 HDL Cholesterol 36 mg/dL (40-59) L 03/21/17 06:27 Vitamin B12 1163 pg/mL (250-1100) H 03/22/17 08:58 Folate 39.0 ng/mL (3.0-16.0) H 03/22/17 08:58 Coronavirus NL63 (PCR) DETECTED (Not Detect) A 03/20/17 15:23 Human Metapneumovir PCR DETECTED (Not Detect) A 03/20/17 15:23 - Attending Attestation I examined this patient and my medical decision-making was reviewed with the Resident Physician. I agree with the documented findings, disposition and treatment plan as described except to the extent set forth below. - Labs CBC & Chem 7: 03/25/17 05:30 03/25/17 05:30 Labs: Laboratory Results - last 24 hr 03/24/17 03/24/17 03/24/17 09:03 11:45 15:57 WBC RBC Hgb Hct MCV MCH MCHC RDW Plt Count MPV Immature Gran % Seg Neutrophils % Lymphocytes % Monocytes % Eosinophils % Basophils % Neutrophils # Lymphocytes # Monocytes # Eosinophils # Basophils # Platelet Estimate Anisocytosis Macrocytosis Sodium Potassium Chloride Carbon Dioxide BUN Creatinine Est GFR ( Amer) Est GFR (Non-Af Amer) BUN/Creatinine Ratio Glucose POC Glucose 168 H 207 H 173 H Calculated Osmolality Calcium Total Bilirubin AST ALT Alkaline Phosphatase Serum Total Protein Albumin Globulin Albumin/Globulin Ratio 03/25/17 03/25/17 03/25/17 05:30 05:30 06:50 WBC 5.1 RBC 2.12 L Hgb 7.6 L Hct 23.6 L MCV 111.3 H MCH 35.8 H MCHC 32.2 RDW 18.6 H Plt Count 216 MPV 10.9 Immature Gran % 0.4 Seg Neutrophils % 62.9 Lymphocytes % 21.2 Monocytes % 13.3 Eosinophils % 1.8 Basophils % 0.4 Neutrophils # 3.2 Lymphocytes # 1.1 Monocytes # 0.7 Eosinophils # 0.1 Basophils # 0.0 Platelet Estimate Normal Anisocytosis 1+ A Macrocytosis Present A Sodium 137 Potassium 3.8 Chloride 99 Carbon Dioxide 33 H BUN 25 H Creatinine 0.88 Est GFR ( Amer) > 60 Est GFR (Non-Af Amer) > 60 BUN/Creatinine Ratio 28 H Glucose 175 H POC Glucose 180 H Calculated Osmolality 293 Calcium 8.7 Total Bilirubin 0.7 AST 8 L ALT 5 L Alkaline Phosphatase 65 Serum Total Protein 5.9 L Albumin 2.7 L Globulin 3.2 Albumin/Globulin Ratio 0.8 L
[2017-03-25] MEDS: Budesonide/Formoterol 160/4.5 MDI IH SCH (11:45)
[2017-03-25 15:33] VITALS: BP 115/60
[2017-03-26] MEDS ORDERED: Cyanocobalamin (B-12) 1,000 MCG/ML VIAL IM SCH (09:00)
[2017-03-27] MEDS ORDERED: Levofloxacin 500 MG/100 ML 500 MG/100 ML BAG IVPB SCH (08:00)
[2017-03-27] MEDS ORDERED: levoFLOXacin 500 MG TABLET PO SCH (09:00)
== END 2017-03-25 16:00 | DRG 291 ==
LOC: 2ANU 09:55 → EMEROO 09:55 → 2ANU 14:40
PROVIDERS: ADMIT Hospitalist; ATTEND Internal Medicine